=== PATIENT | female | born 1990 | race Caucasian/White ===

== ENCOUNTER 2016-07-22 16:02 | Emergency (ER) | payer BC, MEDICAID ==
[2016-07-22] MEDS ORDERED: NS 0.9% 1000 ML* 2,000 ML IV ONE (16:57)
[2016-07-22 17:17] LABS: Hematocrit 40 % (35-47); Hemoglobin 13.4 g/dl (12.0-16.0); Mean Corpuscular HGB Conc 34 g/dl (31-36); Mean Corpuscular Hemoglobin 27 pg (27-31); Mean Corpuscular Volume 80 fL (80-97); Mean Platelet Volume 9 um3 (7.4-10.4); Red Cell Distribution Width 15 % (10.5-15)
[2016-07-22 17:30] LABS: ALT 44 U/L (7-52); AST 43 U/L (13-39); Albumin 4.6 g/dL (3.2-5.2); Alkaline Phosphatase 81 U/L (34-104); Anion Gap 12 mmol/L (2-11); BUN/Creatinine Ratio 20.5 (8-20); Blood Urea Nitrogen 16 mg/dL (6-24); CO2 Carbon Dioxide 22 mmol/L (22-32); Calcium 9.7 mg/dL (8.6-10.3); Chloride 104 mmol/L (101-111); Creatine Kinase 108 U/L (10-223); EGFR African American 115.7 (>60); Globulin 3.6 g/dL (2-4); Glucose 85 mg/dL (70-100); Lipase 15 U/L (11.0-82.0); Potassium 3.5 mmol/L (3.5-5.0); Sodium 138 mmol/L (133-145); Total Protein 8.2 g/dL (6.4-8.9)
[2016-07-22] MEDS ORDERED: Iohexol 350* (CONTRAST) 500 ML MDV IV ONE (17:43)
[2016-07-22 17:51] LABS: TSH (Thyroid Stimulating Horm) 0.86 mcIU/mL (0.34-5.60)
--- NOTE | 2016-07-22 19:01 | RAD ---
Indication: Chest pain, shortness of breath. CTA of the chest was performed after IV contrast administration. Coronal and sagittal reconstructed images were obtained. Administered 57.7 ml of OMNIPAQUE 350 mgi/ml was given according to hospital protocol. Coronal and sagittal reconstructed images were obtained. The pulmonary arterial tree is well opacified. There are no filling defects present to suggest pulmonary embolus. There is no mediastinal or hilar adenopathy. The heart demonstrates no pericardial effusion. The inferior thyroid lobes are unremarkable. There is no mediastinal or hilar adenopathy noted. The heart demonstrates no pericardial effusion. The lung burnett demonstrate no evidence of alveolar consolidation. The trachea and major bronchi appear patent. No alveolar consolidation is noted. The visualized abdominal organs are unremarkable. IMPRESSION: No evidence of pulmonary embolus is noted.
[2016-07-22] MEDS ORDERED: NS 0.9% 1000 ML* 1,000 ML IV ONE (19:21)
[2016-07-22 19:48] LABS: Urine Bilirubin Negative (Negative); Urine Glucose Negative (Negative); Urine Nitrite Negative (Negative)
[2016-07-22 20:35] VITALS: BP 116/75
--- NOTE | 2016-07-22 20:39 | ED ---
Ruben Oneill Anna, scribed for Santhosh Otero MD on 07/22/16 at 1707 . Shortness of Breath - HPI Summary HPI Summary: Patient is a 25 y/o female coming to [facility] presenting with intermittent SOB that began this morning. The patient additionally reports feeling pressure in her chest, body aches, and feeling tired and weak with everyday activities like laundry. She is somewhat tired at baseline, but this is more severe than normal. Her body aches are most severe in her back, specifically her upper back. The symptoms have been worsening. Her appetite has been limited and she has eaten little over the last few days. When driving here, she became lightheaded and her fingers felt tingly. Denies fever, chills, cough, diarrhea, dysuria, pain in calves, hx of blood clots, or known allergies. Oxygen has alleviated SOB somewhat, but has not alleviated chest pressure. Pt is currently receiving Interferon for her chemotherapy treatment. She was previously on an IV every day. Last week she started doing shots at home instead. She has done four of these, which are scheduled for 3 days/week. When she started doing the shots, it made her feel crappy. Her doctor told her to do the shots before bed to sleep through the symptoms, and that has usually been okay. After she did her shot last night, she didnt sleep more than 3 hours. LNMP last week. She used to be on control but is not anymore. Her cramps are bad and flow is heavy since going off the control. - History of Current Complaint Chief Complaint: EDShortnessOfBreath Time Seen by Provider: 07/22/16 16:46 Hx Obtained From: Patient, Family/Buyer Agent - Accompanied by parents - Allergy/Home Medications Allergies/Adverse Reactions: Allergies Allergy/AdvReac Type Severity Reaction Status Date / Time No Known Allergies Allergy Verified 07/22/16 16:18 PMH/Surg Hx/FS Hx/Imm Hx Previously Healthy: No Endocrine/Hematology History: Denies: Hx Diabetes, Hx Thyroid Disease Cardiovascular History: Denies: Hx Hypertension, Hx Pacemaker/ICD Respiratory History: Denies: Hx Asthma, Hx Chronic Obstructive Pulmonary Disease (COPD) GI History: Denies: Hx Ulcer History: Denies: Hx Dialysis, Hx Renal Disease Sensory History: Reports: Hx Contacts or Glasses - BOTH Denies: Hx Hearing Aid Opthamlomology History: Reports: Hx Contacts or Glasses - BOTH Neurological History: Reports: Hx Headaches Psychiatric History: Reports: Hx Anxiety, Hx Depression Denies: Hx Panic Disorder - Cancer History Cancer Type, Location and Year: MELANOMA - NEW DIAGNOSIS Hx Chemotherapy: Yes - Surgical History Surgery Procedure, Year, and Place: Rt THIGH - MOLE REMOVED - MELANOMA +, WIDE EXCISION WITH LYMPH NODE REMOVED FROM GROIN Infectious Disease History: No Infectious Disease History: Denies: Hx Hepatitis, Hx Human Immunodeficiency Virus (HIV), Traveled Outside the [place] in Last 30 Days - Family History Known Family History: Positive: Hypertension - Father, Diabetes - Grandfather - Social History Lives: Alone Alcohol Use: Occasionally Substance Use Type: Reports: None Smoking Status (MU): Never Smoked Tobacco Review of Systems Positive: Other - Limited appetite, Positive: Chest Pain Positive: Shortness Of Breath Positive: Myalgia Neurological: Other - lightheaded Positive: Paresthesia All Other Systems Reviewed And Are Negative: Yes Physical Exam - Summary Physical Exam Summary: Mildly SOB in appearance Triage Information Reviewed: Yes Vital Signs On Initial Exam: Initial Vitals Temp Pulse Resp BP Pulse Ox 98.9 F 97 20 106/80 100 07/22/16 16:18 07/22/16 16:18 07/22/16 16:18 07/22/16 16:18 07/22/16 16:18 Vital Signs Reviewed: Yes Skin: Positive: Warm, Skin Color Reflects Adequate Perfusion, Dry Head/Face: Positive: Normal Head/Face Inspection Eyes: Positive: EOMI, CAMRYN ENT: Positive: Normal ENT inspection Neck: Positive: Supple, Nontender Cardiovascular: Positive: RRR Abdomen Description: Positive: Nontender, Soft Bowel Sounds: Positive: Present Musculoskeletal: Positive: Normal, Strength/ROM Intact Neurological: Positive: Normal, Sensory/Motor Intact, Alert, Oriented to Person Place, Time Psychiatric: Positive: Affect/Mood Appropriate Diagnostics - Vital Signs Vital Signs Temp Pulse Resp BP Pulse Ox 07/22/16 16:18 98.9 F 97 20 106/80 100 - Laboratory Lab Results: Lab Results 07/22/16 07/22/16 07/22/16 Range/Units 16:15 16:15 16:15 WBC 4.0 (3.5-10.8) 10^3/ul RBC 5.00 (4.0-5.4) 10^6/ul Hgb 13.4 (12.0-16.0) g/dl Hct 40 (35-47) % MCV 80 (80-97) fL MCH 27 (27-31) pg MCHC 34 (31-36) g/dl RDW 15 (10.5-15) % Plt Count 171 (150-450) 10^3/ul MPV 9 (7.4-10.4) um3 Neut % (Auto) 61.3 (38-83) % Lymph % (Auto) 19.6 L (25-47) % Piatt % (Auto) 18.4 H (1-9) % Eos % (Auto) 0 (0-6) % Baso % (Auto) 0.7 (0-2) % Absolute Neuts (auto) 2.5 (1.5-7.7) 10^3/ul Absolute Lymphs (auto) 0.8 L (1.0-4.8) 10^3/ul Absolute Monos (auto) 0.7 (0-0.8) 10^3/ul Absolute Eos (auto) 0 (0-0.6) 10^3/ul Absolute Basos (auto) 0 (0-0.2) 10^3/ul Absolute Nucleated RBC 0.03 10^3/ul Nucleated RBC % 0.8 INR (Anticoag Therapy) 0.90 (0.89-1.11) APTT 27.6 (26.0-36.3) seconds Sodium 138 (133-145) mmol/L Potassium 3.5 (3.5-5.0) mmol/L Chloride 104 (101-111) mmol/L Carbon Dioxide 22 (22-32) mmol/L Anion Gap 12 H (2-11) mmol/L BUN 16 (6-24) mg/dL Creatinine 0.78 (0.51-0.95) mg/dL Est GFR ( Amer) 115.7 (>60) Est GFR (Non-Af Amer) 90.0 (>60) BUN/Creatinine Ratio 20.5 H (8-20) Glucose 85 (70-100) mg/dL Lactic Acid (0.5-2.0) mmol/L Calcium 9.7 (8.6-10.3) mg/dL Total Bilirubin 0.40 (0.2-1.0) mg/dL AST 43 H (13-39) U/L ALT 44 (7-52) U/L Alkaline Phosphatase 81 (34-104) U/L Total Creatine Kinase 108 (10-223) U/L CK-MB (CK-2) 1.5 (0.6-6.3) ng/mL Troponin I 0.00 (<0.04) ng/mL C-Reactive Protein 2.60 (< 5.00) mg/L Total Protein 8.2 (6.4-8.9) g/dL Albumin 4.6 (3.2-5.2) g/dL Globulin 3.6 (2-4) g/dL Albumin/Globulin Ratio 1.3 (1-3) Lipase 15 (11.0-82.0) U/L TSH 0.86 (0.34-5.60) mcIU/mL Beta HCG, Quant < 0.60 mIU/mL Urine Color Urine Appearance Urine pH (5-9) Ur Specific Washburn (1.010-1.030) Urine Protein (Negative) Urine Ketones (Negative) Urine Blood (Negative) Urine Nitrate (Negative) Urine Bilirubin (Negative) Urine Urobilinogen (Negative) Ur Leukocyte Esterase (Negative) Urine Glucose (Negative) 07/22/16 07/22/16 Range/Units 16:15 19:34 WBC (3.5-10.8) 10^3/ul RBC (4.0-5.4) 10^6/ul Hgb (12.0-16.0) g/dl Hct (35-47) % MCV (80-97) fL MCH (27-31) pg MCHC (31-36) g/dl RDW (10.5-15) % Plt Count (150-450) 10^3/ul MPV (7.4-10.4) um3 Neut % (Auto) (38-83) % Lymph % (Auto) (25-47) % Piatt % (Auto) (1-9) % Eos % (Auto) (0-6) % Baso % (Auto) (0-2) % Absolute Neuts (auto) (1.5-7.7) 10^3/ul Absolute Lymphs (auto) (1.0-4.8) 10^3/ul Absolute Monos (auto) (0-0.8) 10^3/ul Absolute Eos (auto) (0-0.6) 10^3/ul Absolute Basos (auto) (0-0.2) 10^3/ul Absolute Nucleated RBC 10^3/ul Nucleated RBC % INR (Anticoag Therapy) (0.89-1.11) APTT (26.0-36.3) seconds Sodium (133-145) mmol/L Potassium (3.5-5.0) mmol/L Chloride (101-111) mmol/L Carbon Dioxide (22-32) mmol/L Anion Gap (2-11) mmol/L BUN (6-24) mg/dL Creatinine (0.51-0.95) mg/dL Est GFR ( Amer) (>60) Est GFR (Non-Af Amer) (>60) BUN/Creatinine Ratio (8-20) Glucose (70-100) mg/dL Lactic Acid 2.5 H* (0.5-2.0) mmol/L Calcium (8.6-10.3) mg/dL Total Bilirubin (0.2-1.0) mg/dL AST (13-39) U/L ALT (7-52) U/L Alkaline Phosphatase (34-104) U/L Total Creatine Kinase (10-223) U/L CK-MB (CK-2) (0.6-6.3) ng/mL Troponin I (<0.04) ng/mL C-Reactive Protein (< 5.00) mg/L Total Protein (6.4-8.9) g/dL Albumin (3.2-5.2) g/dL Globulin (2-4) g/dL Albumin/Globulin Ratio (1-3) Lipase (11.0-82.0) U/L TSH (0.34-5.60) mcIU/mL Beta HCG, Quant mIU/mL Urine Color Yellow Urine Appearance Clear Urine pH 7.0 (5-9) Ur Specific Washburn > 1.060 H (1.010-1.030) Urine Protein Negative (Negative) Urine Ketones 2+ H (Negative) Urine Blood Negative (Negative) Urine Nitrate Negative (Negative) Urine Bilirubin Negative (Negative) Urine Urobilinogen Negative (Negative) Ur Leukocyte Esterase Negative (Negative) Urine Glucose Negative (Negative) Result Diagrams: 07/22/16 16:15 07/22/16 16:15 Lab Statement: Any lab studies that have been ordered have been reviewed, and results considered in the medical decision making process. - CT Chest CTA CT Interpretation: No Acute Changes CT Interpretation Completed By: Radiologist - No evidence of pulmonary embolus is noted. - EKG 16:08 Cardiac Rate: NL - 97 bpm EKG Rhythm: Sinus Rhythm ST Segment: Normal Ectopy: None Re-Evaluation - Re-Evaluation First Eval Re-Evaluation Time: 19:56 Change: Improved Comment: Pt reports that she is feeling somewhat better. She was able to walk to the bathroom. Second Eval Re-Evaluation Time: 20:37 Change: Improved - Discussed reuslts and plan of care with patient. Patient agrees with plan. Course/Dx - Course Assessment/Plan: DISCUSSED RESULTS WITH PATIENT/MOTHER. DISCUSSED WITH DR GRIFFITHS. DISCHARGE HOME STABLE. - Diagnoses Provider Diagnoses: Dyspnea, Weakness - Physician Notifications Discussed Care of Patient With: Dr. Byers (oncologist) at 20:03. She recommended a CTA, which was negative. If the patient feels fine to go home, she is able to be discharged. The patient should consult with her doctor before she takes another treatment shot. Discharge - Discharge Plan Condition: Stable Disposition: HOME Patient Education Materials: Dyspnea (ED), Fatigue (ED) Referrals: Juan Ventura MD [Medical Doctor] - Additional Instructions: FOLLOW UP WITH YOUR DOCTOR. RETURN TO THE EMERGENCY DEPARTMENT FOR ANY WORSENING OF YOUR CONDITION OR QUESTIONS OR CONCERNS. The documentation as recorded by the Ruben leon Anna accurately reflects the service I personally performed and the decisions made by me, Santhosh Otero MD.
== END 2016-07-22 20:53 | disposition home or self-care (01) ==
LOC: ED 16:02
DX: R06.02 Shortness of breath (principal); R07.9 Chest pain, unspecified; R20.9 Unspecified disturbances of skin sensation; R06.00 Dyspnea, unspecified; R53.1 Weakness
CPT/HCPCS: 36415; 71275; 80053; 81003; 82550; 82553; 83605; 83690; 84443; 84484; 84702; 85025; 85610; 85730; 86140; 93005; 96360; 99283; Q9967

== ENCOUNTER 2016-12-09 15:52 | Emergency (ER) | payer BC, MEDICAID ==
[2016-12-09 17:34] VITALS: BP 116/77
[2016-12-09] MEDS ORDERED: Ibuprofen TAB* 600 MG PO ONE (17:37)
--- NOTE | 2016-12-09 18:49 | UC ---
Dental HPI - HPI Summary HPI Summary: 25 female presents with complaints of tooth pain on the right side of her lower jaw and radiates into cheek and ear that began last night 12/08/16. Patient states the tooth filling she had in her molar tooth fell out 2-3 days ago and worsened last night. Denies known swelling, redness, difficulty swallowing, difficulty breathing and any other complaints at this time. Tried taking ibuprofen this morning around 6:30am (1200mg) and it only gave her some relief. Has not tried anything else. She was up all night due to pain. - History of Current Complaint Chief Complaint: UCDentalProblem Stated Complaint: DENTAL/EAR/JAW PAIN Time Seen by Provider: 12/09/16 18:28 Hx Obtained From: Patient Hx Last Menstrual Period: 11/23/16 ?: No Onset/Duration: Sudden Onset, Lasting Days Pain Intensity: 9 Pain Scale Used: 0-10 Numeric Alleviating: OTC Meds - minimal - Allergies/Home Medications Allergies/Adverse Reactions: Allergies Allergy/AdvReac Type Severity Reaction Status Date / Time No Known Allergies Allergy Verified 12/09/16 17:24 Home Medications: Home Medications Ibuprofen [Advil] 600 mg PO Q6H PRN 12/09/16 [History Confirmed 12/09/16] Interferon Hood-2B [Intron A] 12/09/16 [History] PMH/Surg Hx/FS Hx/Imm Hx - Additional Past Medical History Additional PMH: denies asthma, htn and diabetes Cancer History: Other - melanoma Other Cancer History: melanoma - Surgical History Surgical History: Yes Surgery Procedure, Year, and Place: Rt THIGH - MOLE REMOVED - MELANOMA +, WIDE EXCISION WITH LYMPH NODE REMOVED FROM GROIN,left shoulder melanoma also. PT HAS DERMALS IN LOWER BACK AND WE HAVE SCANNED BRAIN BEFORE OK'D BY DR ULLOA- THIS IS CSP AND WAS CLEARED BY DR SWANN TO DO - Family History Known Family History: Positive: Hypertension - Father, Diabetes - Grandfather - Social History Alcohol Use: Rare Substance Use Type: None Smoking Status (MU): Never Smoked Tobacco - Immunization History Vaccination Up to Date: Yes Review of Systems Constitutional: Negative Skin: Negative ENT: Dental Pain, Ear Ache Respiratory: Negative Cardiovascular: Negative Gastrointestinal: Negative Motor: Negative Musculoskeletal: Negative Neurological: Headache All Other Systems Reviewed And Are Negative: Yes Physical Exam Triage Information Reviewed: Yes Appearance: Well-Appearing, No Pain Distress, Well-Nourished Vital Signs: Initial Vital Signs Temp 98.6 F 12/09/16 17:31 Pulse 79 12/09/16 17:31 Resp 16 12/09/16 17:31 BP 116/77 12/09/16 17:31 Pulse Ox 100 12/09/16 17:31 Vital Signs Reviewed: Yes Eyes: Positive: Conjunctiva Clear ENT: Positive: Normal ENT inspection, Hearing grossly normal, Pharynx normal, TMs normal. Negative: Pharyngeal erythema, Nasal congestion, Nasal drainage, Tonsillar swelling, Tonsillar exudate, Muffled/hoarse voice Dental: Positive: Gross Decay/Caries @, Dental Fracture @ - filling out of right back molar, Other: - tender on palpation of right cheek and radiating to right ear. no sign of abscess at this time. no erythema or discharge noted. no edema. Negative: Percussion Tenderness @, Abscess @, Cervical Lymphadenopathy, Bleeding Neck: Positive: Supple, Nontender, No Lymphadenopathy Respiratory: Positive: Chest non-tender, Lungs clear, Normal breath sounds, No respiratory distress, No accessory muscle use Cardiovascular: Positive: RRR, No Murmur, Pulses Normal, Brisk Capillary Refill Bowel Sounds: Positive: Present Musculoskeletal: Positive: Strength Intact, ROM Intact Neurological Exam: Normal Neurological: Positive: Alert Psychological Exam: Normal Skin Exam: Normal Dental Complaint Course/Dx - Course Course Of Treatment: given ibuprofen by Dr Galan while in office. due to HPI and PE findings will treat for dental pain and dental infection, prophylactically. Due to symptoms changing a few days after filling fell out, may be start of infection/abscess. Naproxen during day and given some pain management for nightime only to help with pain. Given antibiotics for infection and prophylaxis. Aware of worsening signs and symptoms. Follow up with dentist/ pcp. Swish with salt water, oragel. - Differential Dx/Diagnosis Differential Diagnosis/Dx: Dental Abscess, Dental Caries, Fractured Tooth, Other Provider Diagnoses: dental infection, dental pain Discharge - Discharge Plan Condition: Stable Disposition: HOME Prescriptions: Amoxicillin CAP* [Amoxicillin 500 MG CAP*] 500 mg PO Q12H #14 cap HYDROcodone/ACETAMIN 5-325 MG* [Pacolet 5-325 TAB*] 1 tab PO Q6H PRN #5 tab MDD 2 PRN Reason: Pain Patient Education Materials: Toothache (ED) Referrals: Juan Ventura MD [Primary Care Provider] - Additional Instructions: Take prescribed antibiotic to prevent dental infection/treat dental infection until entire dose is finished. Take prescribed pain medication at bedtime to help with pain. Do not drive while taking this medication. Take naproxen in the morning for pain and inflammation. Swishing with salt water, and using oragel will also help with pain and infection. Be sure to go to dentist appointment on Wednesday or sooner to fix problem. If pain increases, worsens or new symptoms develop please return or seek medical attention. Follow up with dentist.
== END 2016-12-09 19:15 | disposition home or self-care (01) ==
LOC: UCEAST 15:52
DX: K04.7 Periapical abscess without sinus (principal); K08.89 Other specified disorders of teeth and supporting structures
CPT/HCPCS: 99212; A9270-GY; G0463

== ENCOUNTER 2017-06-09 12:57 | Emergency (ER) | payer MEDICAID ==
[2017-06-09 13:13] VITALS: BP 111/66
--- NOTE | 2017-06-09 13:35 | UC ---
Complaint Female HPI - HPI Summary HPI Summary: Pt presents with gross hematuria. She tells me that she has been feeling fine and without symptoms, but starting this morning she has bladder pressure with gross hematuria. It is sharp and burning when she urinates. She tells me that she has a history of melanoma, May 2016, to her right lateral thigh which was "into the lymph nodes" near her right groin. She was undergoing interferon therapy daily and then weekly up until March of 2017 - when she was lost to follow up. She says that she has had some issues with her insurance and that the doctor's office has not called her for follow up. Previously she was seeing them every 2 weeks for labwork and/or treatment. Currently she denies fever, chills, headache, dizziness, SOB, chest pain, recent illness, abdominal pain, N/V/D/C, flank pain, vaginal discharge/bleeding/ odor, new diet or exercise regimen. 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 - History Of Current Complaint Hx Obtained From: Patient Hx Last Menstrual Period: unsure on depo Onset/Duration: Sudden Onset Timing: Constant Severity Initially: Moderate Severity Currently: Moderate Pain Intensity: 3 Pain Scale Used: 0-10 Numeric Character: Burning, Cramping Aggravating Factor(s): Urination Alleviating Factor(s): Nothing <Juan Muñiz - Last Filed: 06/09/17 15:21> <Fabi Ruiz - Last Filed: 06/10/17 14:30> - History Of Current Complaint Chief Complaint: UCGU Stated Complaint: POSS UTI Time Seen by Provider: 06/09/17 13:33 - Allergies/Home Medications Allergies/Adverse Reactions: Allergies Allergy/AdvReac Type Severity Reaction Status Date / Time No Known Allergies Allergy Verified 02/24/17 10:27 PMH/Surg Hx/FS Hx/Imm Hx Previously Healthy: Yes Cancer History: Other Other Cancer History: Melanoma right thigh - Surgical History Surgical History: Yes Surgery Procedure, Year, and Place: Rt THIGH - MOLE REMOVED - MELANOMA +, WIDE EXCISION WITH LYMPH NODE REMOVED FROM GROIN,left shoulder melanoma. R ear, R arm mole removal - Family History Known Family History: Positive: Hypertension - Father, Diabetes - Grandfather - Social History Occupation: Employed Full-time Lives: With Family Alcohol Use: Rare Substance Use Type: None Smoking Status (MU): Never Smoked Tobacco - Immunization History Vaccination Up to Date: Yes <Juan Muñiz - Last Filed: 06/09/17 15:21> Review of Systems Constitutional: Negative Skin: Negative Eyes: Negative ENT: Negative Respiratory: Negative Cardiovascular: Negative Gastrointestinal: Abdominal Pain - Suprapubic Genitourinary: Dysuria, Hematuria Neurovascular: Negative Musculoskeletal: Negative Neurological: Negative Psychological: Negative All Other Systems Reviewed And Are Negative: Yes <Juan Muñiz - Last Filed: 06/09/17 15:21> Physical Exam Triage Information Reviewed: Yes Appearance: Well-Appearing, Well-Nourished Vital Signs: Initial Vital Signs Temp 98.2 F 06/09/17 13:04 Pulse 88 06/09/17 13:04 Resp 18 06/09/17 13:04 BP 111/66 06/09/17 13:04 Pulse Ox 100 06/09/17 13:04 Vital Signs Reviewed: Yes Eyes: Positive: Conjunctiva Clear. Negative: Conjunctiva Inflamed, Discharge ENT: Positive: Hearing grossly normal, Pharynx normal, TMs normal, Uvula midline. Negative: Pharyngeal erythema, Nasal congestion, Nasal drainage, TM bulging, TM dull, TM red, Tonsillar swelling, Tonsillar exudate, Sinus tenderness Neck: Positive: Supple, Nontender, No Lymphadenopathy Respiratory: Positive: Chest non-tender, Lungs clear, Normal breath sounds, No respiratory distress, No accessory muscle use Cardiovascular: Positive: RRR, No Murmur, Pulses Normal Abdomen Description: Positive: Nontender, No Organomegaly, Soft, Other:. Negative: CVA Tenderness (R), CVA Tenderness (L), Distended, Guarding Bowel Sounds: Positive: Present Neurological: Positive: Alert. Negative: Fatigued, Lethargic Psychological: Positive: Age Appropriate Behavior Skin: Negative: rashes <Juan Muñiz - Last Filed: 06/09/17 15:21> Vital Signs: Initial Vital Signs Temp 98.2 F 06/09/17 13:04 Pulse 88 06/09/17 13:04 Resp 18 06/09/17 13:04 BP 111/66 06/09/17 13:04 Pulse Ox 100 06/09/17 13:04 <Fabi Ruiz - Last Filed: 06/10/17 14:30> Complaint Female Dx - Course Course Of Treatment: UA revealed 3+ Protein. 1+ Ketones. 3+ blood. 2+ Bili. 2.0 urobili. 1+ Leuks. Specimen with jacques hematuria. Given pt's melanoma history with lymph node involvement, recent loss to follow up, and abrupt onset of new symptoms - advised to go to the ED for further evaluation. She was agreeable to this and will go by private vehicle. - Differential Dx/Diagnosis Differential Diagnosis/HQI/PQRI: Ureteral Stone, Urinary Tract Infection Provider Diagnoses: Gross Hematuria. Melanoma right thigh. Proteinuria. Bilirubinuria <Juan Muñiz - Last Filed: 06/09/17 15:21> Discharge - Discharge Plan Discharge Disposition Comment: To [facility] by private vehicle <Juan Muñiz - Last Filed: 06/09/17 15:21> <Fabi Ruiz - Last Filed: 06/10/17 14:30> - Discharge Plan Condition: Stable Disposition: OTHER Referrals: Juan Ventura MD [Primary Care Provider] - Additional Instructions: Provider that evaluated you today recommended that you go to the ED for further evaluation regarding your abnormal urine results. If you develop any changes or increased/worsening symptoms on the way - please call 911. Attestation Statement User Type: Provider - Discussed pt with WILLOW. Recommend pt to ED for further evaluation with LFTs, creatinine kinase for ?rhabdo, metatstic dx <Fabi Ruiz - Last Filed: 06/10/17 14:30>
== END 2017-06-09 14:06 ==
LOC: UCEAST 12:57
DX: R82.2 Biliuria (principal); R31.0 Gross hematuria; C43.9 Malignant melanoma of skin, unspecified; R80.9 Proteinuria, unspecified
CPT/HCPCS: 81003; 87086; 99212; G0463

== ENCOUNTER 2017-06-09 14:27 | Emergency (ER) | payer MEDICAID ==
[2017-06-09 14:40] VITALS: BP 112/72
[2017-06-09 17:02] LABS: Urine Bacteria Absent (Absent); Urine Bilirubin Negative (Negative); Urine Glucose Negative (Negative); Urine Nitrite Negative (Negative)
[2017-06-09] MEDS ORDERED: Phenazopyridine TAB* 100 MG PO ONE (17:52)
--- NOTE | 2017-06-09 17:59 | ED ---
GI/ HPI - HPI Summary HPI Summary: Patient arrives from . She is told to come here d/t her jacques blood in the urine. She notes to pain in the suprapubic region, but denies back apin. Denies fevers, sweats or chills. Recently DC'd interferon for her melanoma 2 months ago and possible with elevated LFT's. She is concerned about this. + urinary, frequency, burning upon urination. Dark colored, cloudy urine and bright red urine. Denies flank pain. Denies diaphoresis and chills. Denies known fever. No abnormal vaginal discharge reported. Denies recent illness. Pt presents with gross hematuria. She tells me that she has been feeling fine and without symptoms, but starting this morning she has bladder pressure with gross hematuria. It is sharp and burning when she urinates. She tells me that she has a history of melanoma, May 2016, to her right lateral thigh which was "into the lymph nodes" near her right groin. She was undergoing interferon therapy daily and then weekly up until March of 2017 - when she was lost to follow up. She says that she has had some issues with her insurance and that the doctor's office has not called her for follow up. Previously she was seeing them every 2 weeks for lab work and/or treatment. Currently she denies fever, chills, headache, dizziness, SOB, chest pain, recent illness, abdominal pain, N/V/D/C, flank pain, vaginal discharge/bleeding/ odor, new diet or exercise regimen. 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 - History of Current Complaint Chief Complaint: EDUrogenitalProblems Time Seen by Provider: 06/09/17 16:16 Stated Complaint: BLOOD IN URINE SENT FROM Hx Obtained From: Patient Hx Last Menstrual Period: unsure on depo Onset/Duration: Started Hours Ago Timing: Constant Severity: Moderate Current Severity: Moderate Vaginal Bleeding Description: Bright Red Pain Intensity: 6 Location of Pain: Suprapubic Pain Characteristics: Cramping Associated Signs and Symptoms: Positive: UTI Symptoms Aggravating Factor(s): Nothing Alleviating Factor(s): Nothing - Allergy/Home Medications Allergies/Adverse Reactions: Allergies Allergy/AdvReac Type Severity Reaction Status Date / Time No Known Allergies Allergy Verified 02/24/17 10:27 PMH/Surg Hx/FS Hx/Imm Hx Previously Healthy: Yes Endocrine/Hematology History: Denies: Hx Diabetes, Hx Thyroid Disease Cardiovascular History: Denies: Hx Hypertension, Hx Pacemaker/ICD Respiratory History: Denies: Hx Asthma, Hx Chronic Obstructive Pulmonary Disease (COPD) GI History: Denies: Hx Ulcer History: Denies: Hx Dialysis, Hx Renal Disease Sensory History: Reports: Hx Contacts or Glasses - BOTH Denies: Hx Hearing Aid Opthamlomology History: Reports: Hx Contacts or Glasses - BOTH Neurological History: Reports: Hx Headaches Psychiatric History: Reports: Hx Anxiety, Hx Depression Denies: Hx Panic Disorder - Cancer History Cancer Type, Location and Year: MELANOMA - dx 03/2016; not currently using interferon Hx Chemotherapy: Yes - Surgical History Surgery Procedure, Year, and Place: Rt THIGH - MOLE REMOVED - MELANOMA +, WIDE EXCISION WITH LYMPH NODE REMOVED FROM GROIN,left shoulder melanoma. R ear, R arm mole removal - Immunization History Hx Pertussis Vaccination: No Immunizations Up to Date: Unable to Obtain/Confirm Infectious Disease History: No Infectious Disease History: Denies: Hx Hepatitis, Hx Human Immunodeficiency Virus (HIV), Traveled Outside the [place] in Last 30 Days - Family History Known Family History: Positive: Hypertension - Father, Diabetes - Grandfather - Social History Occupation: Employed Full-time Lives: With Family Alcohol Use: Rare Hx Substance Use: No Substance Use Type: Reports: None Hx Tobacco Use: No Smoking Status (MU): Never Smoked Tobacco Review of Systems Constitutional: Negative Negative: Fever, Chills, Fatigue, Skin Diaphoresis Eyes: Negative Cardiovascular: Negative Respiratory: Negative Positive: see HPI, dysuria, hematuria, pain, urgency Musculoskeletal: Negative Skin: Negative Neurological: Negative All Other Systems Reviewed And Are Negative: Yes Physical Exam Triage Information Reviewed: Yes Vital Signs On Initial Exam: Initial Vitals Temp Pulse Resp BP Pulse Ox 97.6 F 106 20 112/72 100 06/09/17 14:37 06/09/17 14:37 06/09/17 14:37 06/09/17 14:37 06/09/17 14:37 Vital Signs Reviewed: Yes Appearance: Positive: Well-Appearing, Well-Nourished, Pain Distress Skin: Positive: Warm, Skin Color Reflects Adequate Perfusion Head/Face: Positive: Normal Head/Face Inspection Eyes: Positive: EOMI, CAMRYN, Conjunctiva Clear Neck: Positive: Supple, Nontender, No Lymphadenopathy Respiratory/Lung Sounds: Positive: Clear to Auscultation, Breath Sounds Present Cardiovascular: Positive: Normal, RRR, Pulses are Symmetrical in both Upper and Lower Extremities Musculoskeletal: Positive: Normal, Strength/ROM Intact Neurological: Positive: Speech Normal Psychiatric: Positive: Normal, Affect/Mood Appropriate AVPU Assessment: Alert - Mahi Coma Scale Best Eye Response: 4 - Spontaneous Best Motor Response: 6 - Obeys Commands Best Verbal Response: 5 - Oriented Coma Scale Total: 15 Diagnostics - Vital Signs Vital Signs Temp Pulse Resp BP Pulse Ox 06/09/17 14:37 97.6 F 106 20 112/72 100 - Laboratory Lab Results: Lab Results 06/09/17 Range/Units 16:14 Urine Color Yellow Urine Appearance Cloudy Urine pH 7.0 (5-9) Ur Specific [place] 1.021 (1.010-1.030) Urine Protein 2+(100 mg/dl) H (Negative) Urine Ketones 2+ H (Negative) Urine Blood 3+ H (Negative) Urine Nitrate Negative (Negative) Urine Bilirubin Negative (Negative) Urine Urobilinogen Negative (Negative) Ur Leukocyte Esterase 3+ H (Negative) Urine WBC (Auto) 3+(>20/hpf) H (Absent) Urine RBC (Auto) 3+(>10/hpf) H (Absent) Ur Squamous Epith Cells Present H (Absent) Ur Transition Epith Cell Present H (Absent) Urine Bacteria Absent (Absent) Urine Glucose Negative (Negative) Result Diagrams: 06/09/17 18:12 06/09/17 18:12 Lab Statement: Any lab studies that have been ordered have been reviewed, and results considered in the medical decision making process. GIGU Course/Dx - Course Course Of Treatment: UA performed. WBC and leuks seen. Labs WNL. Patient experiencing urgency, frequency and pain on urination. Dark urine noted with RBC's. No abnormal vaginal discharge or bleeding. No CVA tenderness bilaterally. No previous UTI within last 6 months and no recent Augmentin use. Will treat for uncomplicated UTI and await sensitivities of urine culture. Will call if abx not sensitive to medication. Pyridium given for comfort. Return precautions and follow up with PCP. - Diagnoses Differential Diagnoses - Female: Pyelonephritis Provider Diagnoses: UTI (urinary tract infection) Discharge - Discharge Plan Condition: Stable Disposition: HOME Prescriptions: Phenazopyridine TAB* [Pyridium 100 mg TAB*] 100 mg PO TID PRN #12 tab MDD 3 PRN Reason: Pain Sulfamethox/Trimethoprim DS* [Bactrim DS 800/160 TAB*] 1 tab PO BID #10 tab MDD 2 Patient Education Materials: Urinary Tract Infection in Women (ED) Referrals: Juan Ventura MD [Primary Care Provider] - Additional Instructions: Dx. Urinary Tract Infection Drink plenty of fluids. Supplement with cranberry or ng juice. You may also take an over the counter cranberry supplement. If you have any questions about this, you may ask your pharmacist. If your symptoms have not improved in 1-2 days, if you develop fever, sweats or chills, please go to your emergency room, or call your PCP. Antibiotics were prescribed to you. Please take as directed. Supplement with over the counter probiotics on the opposite schedule of your antibiotic to prevent secondary infections. Do not take together as they may counteract each other. Pyridium: This medication is used to treat pain, burning, increased urination, and increased urge to urinate. These symptoms are usually caused by infection, injury, surgery, catheter, or other conditions that irritate the lower urinary tract. Pyridium will treat the symptoms of a urinary tract infection, but this medication does not treat the actual infection. Take the antibiotic that your doctor prescribes to treat your infection. Pyridium will most likely darken the color of your urine to an orange or red color. This is a normal effect and is not cause for alarm unless you have other symptoms such as pale or yellowed skin, fever, stomach pain, nausea, and vomiting. Darkened urine may also cause stains to your underwear, which may or may not be removed by laundering. It can also permanently stain soft contact lenses, and you should not wear them while taking this medicine.
[2017-06-09 18:26] LABS: Hematocrit 39 % (35-47); Hemoglobin 13.2 g/dl (12.0-16.0); Mean Corpuscular HGB Conc 34 g/dl (31-36); Mean Corpuscular Hemoglobin 30 pg (27-31); Mean Corpuscular Volume 88 fL (80-97); Mean Platelet Volume 8 um3 (7.4-10.4); Red Blood Count 4.45 10^6/ul (4.0-5.4); Red Cell Distribution Width 15 % (10.5-15)
[2017-06-09 18:40] LABS: Albumin 4.5 g/dL (3.2-5.2); BUN/Creatinine Ratio 11.3 (8-20); Calcium 9.4 mg/dL (8.6-10.3); EGFR African American 111.5 (>60); EGFR Non-African American 86.7 (>60); Potassium 3.6 mmol/L (3.5-5.0); Total Bilirubin 0.9 mg/dL (0.2-1.0); Total Protein 7.5 g/dL (6.4-8.9)
== END 2017-06-09 18:59 | disposition home or self-care (01) ==
LOC: ED 14:27
DX: N39.0 Urinary tract infection, site not specified (principal); F32.9 Major depressive disorder, single episode, unspecified; F41.9 Anxiety disorder, unspecified; C43.9 Malignant melanoma of skin, unspecified
CPT/HCPCS: 36415; 80053; 81003; 81015; 85025; 99282; A9270-GY

== ENCOUNTER 2017-09-26 11:21 | Emergency (ER) | payer OTHER ==
[2017-09-26] MEDS ORDERED: NS 0.9% 1000 ML* 2,000 ML IV ONE (12:21)
[2017-09-26] MEDS ORDERED: Sodium Phosphate ADULT ENEMA* 118 ml bottle PR ONE (12:21)
[2017-09-26 12:37] LABS: ABS Basophils 0.1 10^3/ul (0-0.2); ABS Eosinophils 0.1 10^3/ul (0-0.6); ABS Lymphocytes 1.8 10^3/ul (1.0-4.8); ABS Monocytes 0.5 10^3/ul (0-0.8); ABS Neutrophils 5.2 10^3/ul (1.5-7.7); ABS Nucleated RBC 0 10^3/ul; Eosinophil % 1.1 % (0-6); Hematocrit 40 % (35-47); Hemoglobin 13.4 g/dl (12.0-16.0); Mean Corpuscular HGB Conc 34 g/dl (31-36); Mean Corpuscular Hemoglobin 31 pg (27-31); Mean Corpuscular Volume 91 fL (80-97); Mean Platelet Volume 8 um3 (7.4-10.4); Nucleated Red Blood Cells % 0; Platelet Count 219 10^3/ul (150-450); Red Blood Count 4.33 10^6/ul (4.0-5.4); Red Cell Distribution Width 14 % (10.5-15); White Blood Count 7.6 10^3/ul (3.5-10.8)
[2017-09-26 12:38] LABS: Urine Appearance Cloudy; Urine Blood Negative (Negative); Urine Color Yellow; Urine Ketones Negative (Negative); Urine Protein Negative (Negative); Urine Urobilinogen Negative (Negative)
[2017-09-26 13:02] LABS: EGFR Non-African American 78.7 (>60)
[2017-09-26] MEDS ORDERED: Iohexol 300* (CONTRAST) 10 ML SDV IV ONE (13:58)
--- NOTE | 2017-09-26 16:16 | RAD ---
CLINICAL HISTORY: Lower abdominal pain x2 months COMPARISON: CT abdomen pelvis dated January 25, 2012 TECHNIQUE: Contrast enhanced CT examination of the abdomen and pelvis from the lung bases through the initial tuberosities. The patient received 67 mL Omnipaque 300 intravenously prior to imaging.The patient received oral contrast as well prior to imaging. FINDINGS: VISUALIZED LUNG BASES: The visualized lung bases are grossly clear. There is no pleural effusion. ABDOMEN AND PELVIS: The liver, spleen, pancreas and adrenal glands are grossly normal in appearance. There is a small amount of pericholecystic fluid. There is no hyperattenuating material in the gallbladder lumen. There is no definite common bile duct widening within the limitations of CT evaluation. The kidneys are normal in appearance without focal mass, calcification or signs of hydronephrosis. Incidental note is made of a left retroaortic renal vein. The oral contrast has progressed as far as the descending colon. The small and large bowel are not distended. The normal-appearing appendix with gas and oral contrast in the lumen is identified in the right lower quadrant (axial image 64 and coronal image 40). There is no gross retroperitoneal or mesenteric lymphadenopathy. The pelvic viscera is normal in appearance. Surgical material overlying the right groin is presumably related to the reported history of lymph node resection. The abdominal aorta and iliac arteries are normal in course and diameter. There are no sinister bone lesions. IMPRESSION: The small amount of pericholecystic fluid could be seen in the setting of cholecystitis. If this correlates to the patient's clinical presentation superior characterization of the gallbladder can be made with right upper quadrant ultrasound.
[2017-09-26] MEDS ORDERED: Ketorolac INJ* 30 MG/ML 1 ML VIAL IV ONE (16:30)
--- NOTE | 2017-09-26 17:36 | RAD ---
HISTORY: To further characterize pericholecystic fluid seen on the same day CT of the abdomen and pelvis in a woman with lower abdominal pain COMPARISONS: Same day CT of the abdomen and pelvis that showed trace pericholecystic fluid, new since the previous CT examination TECHNIQUE: Multiple transverse and longitudinal ultrasound images were obtained of the right upper quadrant. FINDINGS: LIVER: The liver is normal in dimensions and echogenicity. Normal hepatic and portal venous blood flow is duplicated with color flow imaging. There is no gross intrahepatic biliary duct dilatation. GALLBLADDER AND EXTRAHEPATIC BILIARY DUCT: There is trace pericholecystic fluid. Otherwise the gallbladder is normal in appearance without intraluminal stones or other soft tissue masses. There is no gallbladder wall thickening. The common bile duct measures a maximum diameter of 3 mm. PANCREAS: The portions of the pancreas not obscured by bowel gas are normal in appearance. RIGHT KIDNEY: The right kidney is normal in size, morphology and echogenicity. AORTA AND IVC: The visualized portions are normal in appearance and not pathologically dilated. IMPRESSION: TRACE PERICHOLECYSTIC FLUID AND THIS OTHERWISE NORMAL RIGHT UPPER QUADRANT ULTRASOUND.
[2017-09-26 18:17] VITALS: BP 105/71
--- NOTE | 2017-09-26 19:54 | ED ---
Matty Oneill Elizabeth, scribed for Santhosh Otero MD on 09/26/17 at 1225 . Abdominal Pain/Female - HPI Summary HPI Summary: The patient is a 26 year old female complaining of stomach pain that has been ongoing for 2 months. The patient additionally complains of cramping and constipation. The patient denies dysuria, congestion, or sore throat. The patient notes that she has been taking laxatives and stool softeners to help with bowel movements but they have not provided relief recently. She says that standing aggravates the pain. She has been taking an antacid prescribed by her primary care physician. Patient takes the Depo-Provera control shot. - History of Current Complaint Chief Complaint: EDGeneral Stated Complaint: ABD PAIN Time Seen by Provider: 09/26/17 12:11 Hx Obtained From: Patient Hx Last Menstrual Period: unsure on depo Onset/Duration: Lasting Weeks - lasting 2 months Timing: Weeks Severity Currently: Mild Pain Intensity: 6 Pain Scale Used: 0-10 Numeric Radiates to: LLQ Character: Cramping Alleviating Factor(s): Position - lying down alleviates some pain Associated Signs and Symptoms: Positive: Constipation. Negative: Urinary Symptoms Allergies/Adverse Reactions: Allergies Allergy/AdvReac Type Severity Reaction Status Date / Time No Known Allergies Allergy Verified 09/26/17 11:30 Home Medications: Home Medications Omeprazole CAP* [Prilosec CAP* 20 MG] 20 mg PO DAILY 09/26/17 [History Confirmed 09/26/17] PMH/Surg Hx/FS Hx/Imm Hx Endocrine/Hematology History: Denies: Hx Diabetes, Hx Thyroid Disease Cardiovascular History: Denies: Hx Hypertension, Hx Pacemaker/ICD Respiratory History: Denies: Hx Asthma, Hx Chronic Obstructive Pulmonary Disease (COPD) GI History: Denies: Hx Ulcer History: Denies: Hx Dialysis, Hx Renal Disease Sensory History: Reports: Hx Contacts or Glasses - BOTH Denies: Hx Hearing Aid Opthamlomology History: Reports: Hx Contacts or Glasses - BOTH Neurological History: Reports: Hx Headaches Psychiatric History: Reports: Hx Anxiety, Hx Depression Denies: Hx Panic Disorder - Cancer History Cancer Type, Location and Year: MELANOMA - dx 03/2016; not currently using interferon Hx Chemotherapy: Yes - Surgical History Surgery Procedure, Year, and Place: Rt THIGH - MOLE REMOVED - MELANOMA +, WIDE EXCISION WITH LYMPH NODE REMOVED FROM GROIN,left shoulder melanoma. R ear, R arm mole removal Infectious Disease History: No Infectious Disease History: Denies: Hx Hepatitis, Hx Human Immunodeficiency Virus (HIV), Traveled Outside the [place] in Last 30 Days - Family History Known Family History: Positive: Hypertension - Father, Diabetes - Grandfather - Social History Alcohol Use: Rare Hx Substance Use: No Substance Use Type: Reports: None Hx Tobacco Use: No Smoking Status (MU): Never Smoked Tobacco Review of Systems Negative: Sore Throat, Nasal Discharge Positive: Abdominal Pain - stomach pain, Other - Constipation Negative: dysuria All Other Systems Reviewed And Are Negative: Yes Physical Exam - Summary Physical Exam Summary: General: well-appearing, mild pain distress Skin: warm, color reflects adequate perfusion, dry Head: normal Eyes: EOMI, CAMRYN ENT: normal Neck: supple, nontender Respiratory: CTA, breath sounds present Cardiovascular: RRR Abdomen: soft, mild tenderness in the LLQ Bowel: present Musculoskeletal: normal, strength/ROM intact Neurological: normal, sensory/motor intact, A&O x3 Psychological: affect/mood appropriate Triage Information Reviewed: Yes Vital Signs On Initial Exam: Initial Vitals Temp Pulse Resp BP Pulse Ox 99.4 F 88 18 117/73 100 09/26/17 11:24 09/26/17 11:24 09/26/17 11:24 09/26/17 11:24 09/26/17 11:24 Vital Signs Reviewed: Yes Diagnostics - Vital Signs Vital Signs Temp Pulse Resp BP Pulse Ox 09/26/17 11:24 99.4 F 88 18 117/73 100 - Laboratory Lab Results: Lab Results 09/26/17 09/26/17 09/26/17 Range/Units 12:25 12:25 12:25 WBC 7.6 (3.5-10.8) 10^3/ul RBC 4.33 (4.0-5.4) 10^6/ul Hgb 13.4 (12.0-16.0) g/dl Hct 40 (35-47) % MCV 91 (80-97) fL MCH 31 (27-31) pg MCHC 34 (31-36) g/dl RDW 14 (10.5-15) % Plt Count 219 (150-450) 10^3/ul MPV 8 (7.4-10.4) um3 Neut % (Auto) 68.0 (38-83) % Lymph % (Auto) 24.0 L (25-47) % [place] % (Auto) 6.2 (0-7) % Eos % (Auto) 1.1 (0-6) % Baso % (Auto) 0.7 (0-2) % Absolute Neuts (auto) 5.2 (1.5-7.7) 10^3/ul Absolute Lymphs (auto) 1.8 (1.0-4.8) 10^3/ul Absolute Monos (auto) 0.5 (0-0.8) 10^3/ul Absolute Eos (auto) 0.1 (0-0.6) 10^3/ul Absolute Basos (auto) 0.1 (0-0.2) 10^3/ul Absolute Nucleated RBC 0 10^3/ul Nucleated RBC % 0 Sodium 138 (133-145) mmol/L Potassium 4.0 (3.5-5.0) mmol/L Chloride 108 (101-111) mmol/L Carbon Dioxide 26 (22-32) mmol/L Anion Gap 4 (2-11) mmol/L BUN 9 (6-24) mg/dL Creatinine 0.87 (0.51-0.95) mg/dL Est GFR ( Amer) 101.2 (>60) Est GFR (Non-Af Amer) 78.7 (>60) BUN/Creatinine Ratio 10.3 (8-20) Glucose 89 (70-100) mg/dL Lactic Acid 0.8 (0.5-2.0) mmol/L Calcium 9.5 (8.6-10.3) mg/dL Total Bilirubin 0.40 (0.2-1.0) mg/dL AST 14 (13-39) U/L ALT 12 (7-52) U/L Alkaline Phosphatase 45 (34-104) U/L C-Reactive Protein < 1.00 (< 5.00) mg/L Total Protein 7.1 (6.4-8.9) g/dL Albumin 4.3 (3.2-5.2) g/dL Globulin 2.8 (2-4) g/dL Albumin/Globulin Ratio 1.5 (1-3) Beta HCG, Quant < 0.60 mIU/mL Urine Color Urine Appearance Urine pH (5-9) Ur Specific [place] (1.010-1.030) Urine Protein (Negative) Urine Ketones (Negative) Urine Blood (Negative) Urine Nitrate (Negative) Urine Bilirubin (Negative) Urine Urobilinogen (Negative) Ur Leukocyte Esterase (Negative) Urine Glucose (Negative) 09/26/17 Range/Units 12:25 WBC (3.5-10.8) 10^3/ul RBC (4.0-5.4) 10^6/ul Hgb (12.0-16.0) g/dl Hct (35-47) % MCV (80-97) fL MCH (27-31) pg MCHC (31-36) g/dl RDW (10.5-15) % Plt Count (150-450) 10^3/ul MPV (7.4-10.4) um3 Neut % (Auto) (38-83) % Lymph % (Auto) (25-47) % [place] % (Auto) (0-7) % Eos % (Auto) (0-6) % Baso % (Auto) (0-2) % Absolute Neuts (auto) (1.5-7.7) 10^3/ul Absolute Lymphs (auto) (1.0-4.8) 10^3/ul Absolute Monos (auto) (0-0.8) 10^3/ul Absolute Eos (auto) (0-0.6) 10^3/ul Absolute Basos (auto) (0-0.2) 10^3/ul Absolute Nucleated RBC 10^3/ul Nucleated RBC % Sodium (133-145) mmol/L Potassium (3.5-5.0) mmol/L Chloride (101-111) mmol/L Carbon Dioxide (22-32) mmol/L Anion Gap (2-11) mmol/L BUN (6-24) mg/dL Creatinine (0.51-0.95) mg/dL Est GFR ( Amer) (>60) Est GFR (Non-Af Amer) (>60) BUN/Creatinine Ratio (8-20) Glucose (70-100) mg/dL Lactic Acid (0.5-2.0) mmol/L Calcium (8.6-10.3) mg/dL Total Bilirubin (0.2-1.0) mg/dL AST (13-39) U/L ALT (7-52) U/L Alkaline Phosphatase (34-104) U/L C-Reactive Protein (< 5.00) mg/L Total Protein (6.4-8.9) g/dL Albumin (3.2-5.2) g/dL Globulin (2-4) g/dL Albumin/Globulin Ratio (1-3) Beta HCG, Quant mIU/mL Urine Color Yellow Urine Appearance Cloudy Urine pH 8.0 (5-9) Ur Specific [place] 1.020 (1.010-1.030) Urine Protein Negative (Negative) Urine Ketones Negative (Negative) Urine Blood Negative (Negative) Urine Nitrate Negative (Negative) Urine Bilirubin Negative (Negative) Urine Urobilinogen Negative (Negative) Ur Leukocyte Esterase Negative (Negative) Urine Glucose Negative (Negative) Result Diagrams: 09/26/17 12:25 09/26/17 12:25 Lab Statement: Any lab studies that have been ordered have been reviewed, and results considered in the medical decision making process. - CT CT Abd/Pelvis CT Interpretation: Positive (See Comments) - IMPRESSION: The small amount of pericholecystic fluid could be seen in the setting of cholecystitis. If this correlates to the patient's clinical presentation superior characterization of the gallbladder can be made with right upper quadrant ultrasound. Dr. Otero has reviewed this report. CT Interpretation Completed By: Radiologist - Additional Comments Diagnostic Additional Comments: Gallbladder Ultrasound Interpreted by radiologist. IMPRESSION: TRACE PERICHOLECYSTIC FLUID AND THIS OTHERWISE NORMAL RIGHT UPPER QUADRANT ULTRASOUND. Dr. Otero has reviewed this report. Abdominal Pain Fem Course/Dx - Course Course Of Treatment: DISCUSSED CT FINDINGS WITH RADIOLOGIST. THERE IS NOT EXCESSIVE STOOL IN THE RECTUM. THE SENSATION OF NEEDING TO HAVE A BM MAY BE DUE TO INFLAMMATION. RX BENTYL. RECOMMENDED STOP TAKING LAXATIVES. THE PATIENT HAS A HX OF MELANOMA, IT IS NOT RULED OUT A POSSIBLE CAUSE OF THE ABDOMINAL DISCOMFORT. THIS WAS ALL DISCUSSED WITH THE PATIENT. SHE HAS NO PMD OR ONCOLOGIST AT THIS TIME, I RECOMMENDED RE ESTABLISHING CONTACT WITH HER ONCOLOGIST AND PMD; RETURN IF WORSE. - Diagnoses Provider Diagnoses: Abdominal pain Discharge - Discharge Plan Condition: Stable Disposition: HOME Prescriptions: Dicyclomine CAP* [Bentyl CAP*] 10 mg PO TID PRN #30 cap PRN Reason: Pain Patient Education Materials: Abdominal Pain (ED) Referrals: [facility] [place] PHYSICIAN REFERRAL [Outside] Juan Ventura MD [Medical Doctor] - Additional Instructions: FOLLOW UP WITH YOUR PRIMARY CARE DOCTOR AND YOUR NATIONAL GUARD MEMBER/ONCOLOGIST. RETURN TO THE EMERGENCY DEPARTMENT FOR ANY WORSENING OF YOUR CONDITION; PAIN, FEVER, YOU FEEL ILL OR QUESTIONS OR CONCERNS. The documentation as recorded by the Matty leon Elizabeth accurately reflects the service I personally performed and the decisions made by me, Santhosh Otero MD.
== END 2017-09-26 18:16 | disposition home or self-care (01) ==
LOC: ED 11:21
DX: R10.32 Left lower quadrant pain (principal)
CPT/HCPCS: 36415; 74177; 76705; 80053; 81003; 83605; 84702; 85025; 86140; 96361; 96374; 99283; A9270-GY; J1885; Q9967

== ENCOUNTER 2017-11-12 13:47 | Emergency (ER) | payer SELFPAY ==
[2017-11-12 13:53] VITALS: BP 120/71
--- NOTE | 2017-11-12 17:40 | ED ---
Srikanth Oneill Gabriel, scribed for Curt Porter MD on 11/12/17 at 1438 . Skin Complaint - HPI Summary HPI Summary: This patient is a 26 year old F presenting to [facility] with a chief complaint of a lump on her right thigh that has been increasing in size for the past 3 months. Pt had melanoma 6 inches from the current lump. She has seen her geospatial intelligence analyst and another unspecified doctor for it. The geospatial intelligence analyst told her to follow up with them in 6 weeks. - History of Current Complaint Chief Complaint: EDExtremityLower Time Seen by Provider: 11/12/17 14:21 Stated Complaint: RT LEG PROBLEM Hx Obtained From: Patient Hx Last Menstrual Period: unsure on depo Onset/Duration: Still Present Timing: Constant Onset Severity: Mild Current Severity: Mild Pain Intensity: 0 Pain Scale Used: 0-10 Numeric Skin Location: Leg - r thigh Associated Signs & Symptoms: Negative - fever - Allergy/Home Medications Allergies/Adverse Reactions: Allergies Allergy/AdvReac Type Severity Reaction Status Date / Time No Known Allergies Allergy Verified 11/12/17 13:53 Home Medications: Home Medications NK [No Home Medications Reported] 11/12/17 [History Confirmed 11/12/17] PMH/Surg Hx/FS Hx/Imm Hx Endocrine/Hematology History: Denies: Hx Diabetes, Hx Thyroid Disease Cardiovascular History: Denies: Hx Hypertension, Hx Pacemaker/ICD Respiratory History: Denies: Hx Asthma, Hx Chronic Obstructive Pulmonary Disease (COPD) GI History: Denies: Hx Ulcer History: Denies: Hx Dialysis, Hx Renal Disease Sensory History: Reports: Hx Contacts or Glasses - BOTH Denies: Hx Hearing Aid Opthamlomology History: Reports: Hx Contacts or Glasses - BOTH Neurological History: Reports: Hx Headaches Psychiatric History: Reports: Hx Anxiety, Hx Depression Denies: Hx Panic Disorder - Cancer History Cancer Type, Location and Year: MELANOMA - dx 03/2016; not currently using interferon Hx Chemotherapy: Yes - Surgical History Surgery Procedure, Year, and Place: Rt THIGH - MOLE REMOVED - MELANOMA +, WIDE EXCISION WITH LYMPH NODE REMOVED FROM GROIN,left shoulder melanoma. R ear, R arm mole removal Infectious Disease History: No Infectious Disease History: Denies: Hx Hepatitis, Hx Human Immunodeficiency Virus (HIV), Traveled Outside the [place] in Last 30 Days - Family History Known Family History: Positive: Hypertension - Father, Diabetes - Grandfather - Social History Alcohol Use: Rare Hx Substance Use: No Substance Use Type: Reports: None Hx Tobacco Use: No Smoking Status (MU): Never Smoked Tobacco Review of Systems Negative: Fever Positive: Other - lump at right thigh All Other Systems Reviewed And Are Negative: Yes Physical Exam - Summary Physical Exam Summary: Appearance: Well appearing, no pain distress Skin: there is a 2cm mobile mass in the anterior proximal right thigh, there is also a surgical scar on the right thigh Head/face: normal Eyes: EOMI, CAMRYN ENT: normal Neck: supple, non-tender Respiratory: CTA, breath sounds present Cardiovascular: RRR, pulses symmetrical Abdomen: non-tender, soft Bowel Sounds: present Musculoskeletal: normal, strength/ROM intact Neuro: normal, sensory motor intact, A&Ox3 Triage Information Reviewed: Yes Vital Signs On Initial Exam: Initial Vitals Temp Pulse Resp BP Pulse Ox 99.4 F 86 16 120/71 100 11/12/17 13:50 11/12/17 13:50 11/12/17 13:50 11/12/17 13:50 11/12/17 13:50 Vital Signs Reviewed: Yes Diagnostics - Vital Signs Vital Signs Temp Pulse Resp BP Pulse Ox 11/12/17 14:13 75 100 11/12/17 13:50 99.4 F 86 16 120/71 100 - Laboratory Lab Statement: Any lab studies that have been ordered have been reviewed, and results considered in the medical decision making process. Course/Dx - Course Course Of Treatment: Show the history of melanoma who presents with soft tissue mass only several centimeters from her melanoma surgery scar. She has had this since August and has seen dermatology and her primary care doctor for it. The skin overlying is normal color. It is not a site for lymphadenopathy. It is most likely lipoma which is what I've told her however it needs to be excised by dermatology and biopsied given her history. She is explained that this is not routinely done in the ER and got noticeably upset. I have suggested that she call her geospatial intelligence analyst now to schedule follow-up. - Diagnoses Provider Diagnoses: History of melanoma, Mass of soft tissue of right lower extremity Discharge - Sign-Out/Discharge Documenting (check all that apply): Discharge/Admit/Transfer - Discharge Plan Condition: Good Disposition: HOME Patient Education Materials: Soft Tissue Mass (ED) Referrals: Rose Mary Jarquin [Medical Doctor] - Additional Instructions: Call TODAY for a follow-up appointment. This will need to be removed and/or biopsied by your doctor immediately. - Billing Disposition and Condition Condition: GOOD Disposition: HOME The documentation as recorded by the Srikanth leon Gabriel accurately reflects the service I personally performed and the decisions made by me, Curt Porter MD.
== END 2017-11-12 14:32 | disposition home or self-care (01) ==
LOC: ED 13:47
DX: R22.41 Localized swelling, mass and lump, right lower limb (principal); Z85.820 Personal history of malignant melanoma of skin
CPT/HCPCS: 99282

== ENCOUNTER 2018-02-07 23:32 | Emergency (ER) | payer OTHER ==
[2018-02-08] MEDS ORDERED: Ibuprofen TAB* 600 MG PO ONE (02:08)
[2018-02-08] MEDS ORDERED: Sulfamethox/Trimethoprim DS 800/160* TAB PO ONE (02:08)
--- NOTE | 2018-02-08 02:11 | ED ---
Skin Complaint - HPI Summary HPI Summary: Patient with history of melanoma on right upper thigh complains of mass on anterior right upper thigh since August. Patient states mass has been getting larger and more painful. Being followed by dermatology and surgery. Seen by surgery 2 weeks ago, with appointment on February 15 for mass removal. Mass has been biopsied. Patient concerned because pain is increasing. Denies fever, cough, sore throat, CP, SOB, N/V/V abdominal pain, change in urinary BM. Medical history is none. - History of Current Complaint Chief Complaint: EDExtremityLower Time Seen by Provider: 02/08/18 00:46 Stated Complaint: RT LEG PAIN Hx Obtained From: Patient Hx Last Menstrual Period: unsure on depo Onset/Duration: Started Weeks Ago Skin Exposure Onset/Duration: Weeks Ago Timing: Constant Onset Severity: Mild Current Severity: Moderate Pain Intensity: 8 Pain Scale Used: 0-10 Numeric Skin Location: Discrete Aggravating Symptom(s): Clothing Alleviating Symptom(s): Nothing Associated Signs & Symptoms: Negative - Allergy/Home Medications Allergies/Adverse Reactions: Allergies Allergy/AdvReac Type Severity Reaction Status Date / Time No Known Allergies Allergy Verified 02/07/18 23:36 PMH/Surg Hx/FS Hx/Imm Hx Endocrine/Hematology History: Denies: Hx Anticoagulant Therapy, Hx Diabetes, Hx Thyroid Disease Cardiovascular History: Denies: Hx Hypertension, Hx Pacemaker/ICD Respiratory History: Denies: Hx Asthma, Hx Chronic Obstructive Pulmonary Disease (COPD) GI History: Denies: Hx Ulcer History: Denies: Hx Dialysis, Hx Renal Disease Sensory History: Reports: Hx Contacts or Glasses - BOTH Denies: Hx Hearing Aid Opthamlomology History: Reports: Hx Contacts or Glasses - BOTH Neurological History: Reports: Hx Headaches Psychiatric History: Reports: Hx Anxiety, Hx Depression Denies: Hx Panic Disorder - Cancer History Cancer Type, Location and Year: MELANOMA - dx 03/2016; not currently using interferon Hx Chemotherapy: Yes - Surgical History Surgery Procedure, Year, and Place: Rt THIGH - MOLE REMOVED - MELANOMA +, WIDE EXCISION WITH LYMPH NODE REMOVED FROM GROIN,left shoulder melanoma. R ear, R arm mole removal Infectious Disease History: No Infectious Disease History: Denies: Hx Hepatitis, Hx Human Immunodeficiency Virus (HIV), Traveled Outside the [place] in Last 30 Days - Family History Known Family History: Positive: Hypertension - Father, Diabetes - Grandfather - Social History Alcohol Use: Rare Hx Substance Use: No Substance Use Type: Reports: None Hx Tobacco Use: No Smoking Status (MU): Never Smoked Tobacco Review of Systems Constitutional: Negative Eyes: Negative ENT: Negative Cardiovascular: Negative Respiratory: Negative Gastrointestinal: Negative Genitourinary: Negative Musculoskeletal: Negative Skin: Other Neurological: Negative Psychological: Normal All Other Systems Reviewed And Are Negative: Yes Physical Exam - Summary Physical Exam Summary: 4 centimeter by 4 cm circular mass on anterior upper thigh. Localized tenderness and erythema. No evidence of purulent drainage. Masses firm, nonfluctuant. Triage Information Reviewed: Yes Vital Signs On Initial Exam: Initial Vitals Temp Pulse Resp BP Pulse Ox 98.0 F 107 16 113/61 100 02/07/18 23:33 02/07/18 23:33 02/07/18 23:33 02/07/18 23:33 02/07/18 23:33 Vital Signs Reviewed: Yes Appearance: Positive: Well-Appearing Skin: Positive: Warm Head/Face: Positive: Normal Head/Face Inspection Eyes: Positive: Normal Neck: Positive: Supple Respiratory/Lung Sounds: Positive: Clear to Auscultation Cardiovascular: Positive: Normal Abdomen Description: Positive: Nontender Musculoskeletal: Positive: Normal Neurological: Positive: Normal Psychiatric: Positive: Normal AVPU Assessment: Alert - Mahi Coma Scale Best Eye Response: 4 - Spontaneous Best Motor Response: 6 - Obeys Commands Best Verbal Response: 5 - Oriented Coma Scale Total: 15 Diagnostics - Vital Signs Vital Signs Temp Pulse Resp BP Pulse Ox 02/07/18 23:33 98.0 F 107 16 113/61 100 - Laboratory Lab Statement: Any lab studies that have been ordered have been reviewed, and results considered in the medical decision making process. Course/Dx - Course Course Of Treatment: Patient with history of melanoma on right upper thigh complains of mass on anterior right upper thigh since August. Patient states mass has been getting larger and more painful. Being followed by dermatology and surgery. Seen by surgery 2 weeks ago, with appointment on February 15 for mass removal. Mass has been biopsied. Patient concerned because pain is increasing. Denies fever, cough, sore throat, CP, SOB, N/V/V abdominal pain, change in urinary BM. Medical history is none. 4 centimeter by 4 cm circular mass on anterior upper thigh. Localized tenderness and erythema. No evidence of purulent drainage. Masses firm, nonfluctuant. Vital signs normal. Started on Bactrim here in the ED. Rx for same. Follow-up with surgical appointment next week - Diagnoses Provider Diagnoses: Cellulitis, Localized skin mass, lump, or swelling Discharge - Sign-Out/Discharge Documenting (check all that apply): Patient Departure - Discharge Plan Condition: Stable Disposition: HOME Prescriptions: Ibuprofen TAB* [Motrin TAB* 600 MG] 600 mg PO Q8H PRN 7 Days #20 tab PRN Reason: Pain Sulfamethox/Trimethoprim DS* [Bactrim DS 800/160 TAB*] 1 tab PO BID 10 Days #20 tab Patient Education Materials: Lipoma (ED), Soft Tissue Mass (ED), Lipoma Removal (DC) Referrals: No Primary Care Phys,NOPCP [Primary Care Provider] - Additional Instructions: Take antibiotics as directed. Follow-up with your surgeon for removal of skin mass. Return to the ED for any new or worsening symptoms - Billing Disposition and Condition Condition: STABLE Disposition: Home
[2018-02-08 02:26] VITALS: BP 96/50
== END 2018-02-08 02:26 | disposition home or self-care (01) ==
LOC: ED 23:32
DX: L03.115 Cellulitis of right lower limb (principal); M79.651 Pain in right thigh; M79.89 Other specified soft tissue disorders
CPT/HCPCS: 99282; A9270-GY

== ENCOUNTER 2018-04-06 12:17 | Emergency (ER) | payer OTHER ==
[2018-04-06 12:32] VITALS: BP 106/59
--- NOTE | 2018-04-06 12:37 | UC ---
Complaint Female HPI - HPI Summary HPI Summary: 27 yo female presents with urinary frequency, urgency, and hematuria. Her symptoms began 3 days ago, but her hematuria she noticed today. She has had UTIs in the past and this feels the same. She notes that about a month ago she had lymph nodes removed from her right groin due to melanoma, but has no issues with this site. Denies fever, chills, flank pain, abdominal pain, n/v, abnormal vaginal discharge/bleeding. - History Of Current Complaint Chief Complaint: UCGU Stated Complaint: URINARY ISSUE Time Seen by Provider: 04/06/18 12:36 Hx Obtained From: Patient Hx Last Menstrual Period: depo Onset/Duration: Sudden Onset Timing: Constant Severity Initially: Mild Severity Currently: Mild Pain Intensity: 4 Pain Scale Used: 0-10 Numeric - Allergies/Home Medications Allergies/Adverse Reactions: Allergies Allergy/AdvReac Type Severity Reaction Status Date / Time No Known Allergies Allergy Verified 04/06/18 12:31 Home Medications: Home Medications Nivolumab [Opdivo] 100 mg IV 04/06/18 [History] PMH/Surg Hx/FS Hx/Imm Hx - Additional Past Medical History Additional PMH: Melanoma Other History Of: Negative For: Anticoagulant Therapy - Surgical History Surgical History: Yes Surgery Procedure, Year, and Place: Rt THIGH - MOLE REMOVED - MELANOMA +, WIDE EXCISION WITH LYMPH NODE REMOVED FROM GROIN,left shoulder melanoma. R ear, R arm mole removal - Family History Known Family History: Positive: Hypertension - Father, Diabetes - Grandfather - Social History Occupation: Employed Full-time Lives: With Family Alcohol Use: Occasionally Substance Use Type: None Smoking Status (MU): Current Some Day Smoker - Immunization History Vaccination Up to Date: Yes Review of Systems Constitutional: Negative Skin: Negative Respiratory: Negative Cardiovascular: Negative Gastrointestinal: Negative Genitourinary: Dysuria, Hematuria, Frequency, Urgency Musculoskeletal: Negative Neurological: Negative Psychological: Negative All Other Systems Reviewed And Are Negative: Yes Physical Exam - Summary Physical Exam Summary: GENERAL: NAD. WDWN. No pain distress. SKIN: No rashes, sores, lesions, or open wounds. NECK: Supple. Nontender. No lymphadenopathy. CHEST: CTAB. No r/r/w. No accessory muscle use. Breathing comfortably and in no distress. CV: RRR. Without m/r/g. Pulses intact. Cap refill <2seconds ABDOMEN: Soft. NTTP. No distention or guarding. No CVA tenderness. Bowel sounds present NEURO: Alert. PSYCH: Age appropriate behavior. Triage Information Reviewed: Yes Vital Signs: Initial Vital Signs Temp 98.6 F 04/06/18 12:28 Pulse 106 04/06/18 12:28 Resp 18 04/06/18 12:28 BP 106/59 04/06/18 12:28 Pulse Ox 100 04/06/18 12:28 Laboratory Tests 04/06/18 12:41 POC Urine Color Red A POC Urine Clarity Slightly cloudy POC Urine pH 7.0 POC Ur Specif Weir 1.020 POC Urine Protein 2+ A POC Ur Glucose (UA) Negative POC Urine Ketones Trace A POC Urine Blood 3+ A POC Urine Nitrite Negative POC Urine Bilirubin 1+ A POC Urine Urobilinogen 0.2 POC U Leukocyte Esteras 1+ A Vital Signs Reviewed: Yes Complaint Female Dx - Course Course Of Treatment: UA with sign of infection. Given her recent procedure and hx of melanoma - will treat with Cipro. Urine sent for culture - Differential Dx/Diagnosis Provider Diagnoses: UTI Discharge - Sign-Out/Discharge Documenting (check all that apply): Patient Departure All imaging exams completed and their final reports reviewed: No Studies - Discharge Plan Condition: Stable Disposition: HOME Prescriptions: Ciprofloxacin TAB* [Cipro 500 MG TAB*] 500 mg PO BID #10 tab Patient Education Materials: Urinary Tract Infection in Women (DC) Referrals: No Primary Care Phys,NOPCP [Primary Care Provider] - Additional Instructions: If you develop a fever, shortness of breath, chest pain, new or worsening symptoms - please call your PCP or go to the ED. - Billing Disposition and Condition Condition: STABLE Disposition: Home
== END 2018-04-06 13:02 | disposition home or self-care (01) ==
LOC: UCEAST 12:17
DX: N39.0 Urinary tract infection, site not specified (principal); R31.9 Hematuria, unspecified; Z87.440 Personal history of urinary (tract) infections; Z85.820 Personal history of malignant melanoma of skin; Z72.0 Tobacco use
CPT/HCPCS: 81003; 87077; 87086; 99212; G0463

== ENCOUNTER 2018-12-07 10:05 | Emergency (ER) | payer OTHER ==
[2018-12-07 10:12] VITALS: BP 104/65
--- NOTE | 2018-12-07 10:54 | UC ---
Skin Complaint HPI - HPI Summary HPI Summary: 27 yo female presents with rash. She tells me that 3 days ago she started getting a diffuse red rash on her abdomen, arms, and neck. Arms are improving, but rash still present on torso and neck. States very itchy and appears "hive- like". She shares a bed and living space with her boyfriend and he has no rash. Has been applying a steroid cream, but rash still spreading. Denies difficulty breathing, swelling, SOB, or chest pain. No new medications, soaps, detergents, or environmental changes. No recent travel - History of Current Complaint Chief Complaint: UCSkin Time Seen by Provider: 12/07/18 10:54 Stated Complaint: RASH Hx Obtained From: Patient Hx Last Menstrual Period: depo Onset/Duration: Sudden Onset Onset Severity: Moderate Current Severity: Moderate Pain Intensity: 5 Pain Scale Used: 0-10 Numeric - Allergy/Home Medications Allergies/Adverse Reactions: Allergies Allergy/AdvReac Type Severity Reaction Status Date / Time No Known Allergies Allergy Verified 12/07/18 10:12 Home Medications: Home Medications Gabapentin 1 tab PO DAILY 12/07/18 [History Confirmed 12/07/18] PMH/Surg Hx/FS Hx/Imm Hx - Additional Past Medical History Additional PMH: Melanoma Other History Of: Negative For: Anticoagulant Therapy - Surgical History Surgical History: Yes Surgery Procedure, Year, and Place: Rt THIGH - MOLE REMOVED - MELANOMA +, WIDE EXCISION WITH LYMPH NODE REMOVED FROM GROIN,left shoulder melanoma. R ear, R arm mole removal - Family History Known Family History: Positive: Hypertension - Father, Diabetes - Grandfather - Social History Lives: With Family Alcohol Use: Occasionally Substance Use Type: None Smoking Status (MU): Current Some Day Smoker - Immunization History Most Recent Influenza Vaccination: 2016 Most Recent Pneumonia Vaccination: never Vaccination Up to Date: Yes Review of Systems All Other Systems Reviewed And Are Negative: Yes Constitutional: Positive: Negative Skin: Positive: Rash Eyes: Positive: Negative ENT: Positive: Negative Respiratory: Positive: Negative Cardiovascular: Positive: Negative Gastrointestinal: Positive: Negative Neurovascular: Positive: Negative Neurological: Positive: Negative Psychological: Positive: Negative Physical Exam - Summary Physical Exam Summary: GENERAL: NAD. WDWN. No pain distress. SKIN: Scattered urticaria on neck, torso, back, and faint on b/l arms. No open wound, streaking, drainage, or bleeding. NECK: Supple. Nontender. No lymphadenopathy. CHEST: No accessory muscle use. Breathing comfortably and in no distress. CV: Pulses intact. Cap refill <2seconds NEURO: Alert. PSYCH: Age appropriate behavior. Triage Information Reviewed: Yes Vital Signs: Initial Vital Signs Temp 98.6 F 12/07/18 10:09 Pulse 110 12/07/18 10:09 Resp 20 12/07/18 10:09 BP 104/65 12/07/18 10:09 Pulse Ox 100 12/07/18 10:09 Vital Signs Reviewed: Yes Course/Dx - Course Course Of Treatment: Suspect allergic reaction - will treat with prednisone and benadryl cream and have her f/u if symptoms do not improve in 2-3 days - Diagnoses Provider Diagnosis: Urticaria Discharge - Sign-Out/Discharge Documenting (check all that apply): Patient Departure All imaging exams completed and their final reports reviewed: No Studies - Discharge Plan Condition: Stable Disposition: HOME Prescriptions: diPHENhydraMINE CREAM 2%(NF) [Benadryl X-Strength CREAM 2 % (NF)] 1 applic TOPICAL BID #1 tube predniSONE TAB* [Deltasone 20 MG TAB*] 40 mg PO DAILY #9 tab Patient Education Materials: Urticaria (ED) Referrals: No Primary Care Phys,NOPCP [Primary Care Provider] - Additional Instructions: If you develop a fever, shortness of breath, chest pain, new or worsening symptoms - please call your PCP or go to the ED immediately. - Billing Disposition and Condition Condition: STABLE Disposition: Home
== END 2018-12-07 11:22 | disposition home or self-care (01) ==
LOC: UCEAST 10:05
DX: L50.9 Urticaria, unspecified (principal); F17.200 Nicotine dependence, unspecified, uncomplicated
CPT/HCPCS: 99212; G0463

== ENCOUNTER 2019-04-17 10:21 | Emergency (ER) | payer OTHER ==
--- NOTE | 2019-04-17 10:30 | UC ---
Abdominal Pain Female HPI - HPI Summary HPI Summary: 28 yo female presents with diarrhea. She is currently undergoing immunotherapy for melanoma to her right thigh - being followed by [facility]. She tells me that for the past week she has been having diarrhea. - History of Current Complaint Stated Complaint: DIARRHEA, AND ABDOMINAL PAIN Time Seen by Provider: 04/17/19 10:28 Hx Obtained From: Patient Hx Last Menstrual Period: depo Allergies/Adverse Reactions: Allergies Allergy/AdvReac Type Severity Reaction Status Date / Time No Known Allergies Allergy Verified 04/17/19 10:33 PMH/Surg Hx/FS Hx/Imm Hx Other History Of: Negative For: Anticoagulant Therapy - Surgical History Surgical History: Yes Surgery Procedure, Year, and Place: Rt THIGH - MOLE REMOVED - MELANOMA +, WIDE EXCISION WITH LYMPH NODE REMOVED FROM GROIN,left shoulder melanoma. R ear, R arm mole removal - Family History Known Family History: Positive: Hypertension - Father, Diabetes - Grandfather - Social History Alcohol Use: Occasionally Substance Use Type: None Smoking Status (MU): Current Some Day Smoker - Immunization History Most Recent Influenza Vaccination: 2016 Most Recent Pneumonia Vaccination: never Vaccination Up to Date: Yes Discharge ED - Discharge Plan Referrals: No Primary Care Phys,NOPCP [Primary Care Provider] -
[2019-04-17 10:32] VITALS: BP 107/72
== END 2019-04-17 10:51 | disposition left against medical advice (07) ==
LOC: UCEAST 10:21
DX: Z53.21 Procedure and treatment not carried out due to patient leaving prior to being seen by health care provider (principal)

== ENCOUNTER 2019-04-17 11:17 | Emergency (ER) | payer OTHER ==
[2019-04-17] MEDS ORDERED: Ondansetron INJ* 2 MG/ML VIAL IV ONE (13:37)
[2019-04-17] MEDS ORDERED: NS 0.9% 1000 ML** 1,000 ML IV ONE (13:37)
--- NOTE | 2019-04-17 13:41 | ED ---
Abdominal Pain/Female - HPI Summary HPI Summary: The patient is a 28 y/o F presenting to [facility] with a chief complaint of abdominal cramping and diarrhea onset one week ago. She reports that she began immunotherapy a week ago for melanoma at [facility] and has since been experiencing symptoms of diffuse abdominal cramping and watery diarrhea without blood but is greenish in color. She denies any fevers. Currently, her symptoms are rated 4/10 in severity. No recent traveling. Her boyfriend at home has GI bug. LNMP: two weeks ago. PMHx: melanoma, anxiety, depression. Nonsmoker, no EtOH, no substance use. Medications reviewed. Allergies noted. - History of Current Complaint Chief Complaint: EDNauseaVomitDiarrh Stated Complaint: DIARRHEA X1 WK PER PT Time Seen by Provider: 04/17/19 13:36 Hx Obtained From: Patient Hx Last Menstrual Period: 04/05/19 Onset/Duration: Gradual Onset, Lasting Days - one week, Still Present Timing: Days Severity Initially: Mild Severity Currently: Moderate Pain Intensity: 4 Pain Scale Used: 0-10 Numeric Location: Diffuse Radiates: No Character: Cramping Aggravating Factor(s): Nothing Alleviating Factor(s): Nothing Associated Signs and Symptoms: Positive: Diarrhea - watery. Negative: Fever, Blood in Stool Allergies/Adverse Reactions: Allergies Allergy/AdvReac Type Severity Reaction Status Date / Time No Known Allergies Allergy Verified 04/17/19 10:33 Home Medications: Home Medications Ibuprofen TAB* [Advil TAB*] 200 mg PO Q6H PRN 04/17/19 [History Confirmed ] PMH/Surg Hx/FS Hx/Imm Hx Endocrine/Hematology History: Denies: Hx Anticoagulant Therapy, Hx Diabetes, Hx Thyroid Disease Cardiovascular History: Denies: Hx Hypertension, Hx Pacemaker/ICD Respiratory History: Denies: Hx Asthma, Hx Chronic Obstructive Pulmonary Disease (COPD) GI History: Denies: Hx Ulcer History: Denies: Hx Dialysis, Hx Renal Disease Sensory History: Reports: Hx Contacts or Glasses - BOTH Denies: Hx Hearing Aid Opthamlomology History: Reports: Hx Contacts or Glasses - BOTH Neurological History: Reports: Hx Headaches Psychiatric History: Reports: Hx Anxiety, Hx Depression Denies: Hx Panic Disorder - Cancer History Cancer Type, Location and Year: MELANOMA - dx 03/2016; active Immunotherapy at [facility] 2019 Hx Chemotherapy: Yes - Surgical History Surgical History: Yes Surgery Procedure, Year, and Place: Rt THIGH - MOLE REMOVED - MELANOMA +, WIDE EXCISION WITH LYMPH NODE REMOVED FROM GROIN,left shoulder melanoma. R ear, R arm mole removal Infectious Disease History: No Infectious Disease History: Denies: Hx Hepatitis, Hx Human Immunodeficiency Virus (HIV), Traveled Outside the [place] in Last 30 Days - Family History Known Family History: Positive: Hypertension - Father, Diabetes - Grandfather - Social History Alcohol Use: None Hx Substance Use: No Substance Use Type: Reports: None Hx Tobacco Use: No Smoking Status (MU): Never Smoked Tobacco Review of Systems Positive: Abdominal Pain - diffuse cramping, Diarrhea - watery, green. Negative : Other - blood in stool All Other Systems Reviewed And Are Negative: Yes Physical Exam - Summary Physical Exam Summary: VITAL SIGNS: Reviewed. GENERAL: Patient is a well-developed and nourished female who is lying comfortable in the stretcher. Patient is not in any acute respiratory distress. HEAD AND FACE: No signs of trauma. No ecchymosis, hematomas or skull depressions. No sinus tenderness. EYES: PERRLA, EOMI x 2, No injected conjunctiva, no nystagmus. EARS: Hearing grossly intact. Ear canals and tympanic membranes are within normal limits. MOUTH: Oropharynx within normal limits. NECK: Supple, trachea is midline, no adenopathy, no JVD, no carotid bruit, no c- spine tenderness, neck with full ROM. CHEST: Symmetric, no tenderness at palpation. LUNGS: Clear to auscultation bilaterally. No wheezing or crackles. CVS: Regular rate and rhythm, S1 and S2 present, no murmurs or gallops appreciated. ABDOMEN: Soft, non-tender. No signs of distention. No rebound, no guarding, and no masses palpated. Bowel sounds are normal. EXTREMITIES: FROM in all major joints, no edema, no cyanosis or clubbing. NEURO: Alert and oriented x 3. No acute neurological deficits. Speech is normal and follows commands. SKIN: Dry and warm. Triage Information Reviewed: Yes Vital Signs On Initial Exam: Initial Vitals Temp Pulse Resp BP Pulse Ox 99.3 F 89 16 129/83 98 04/17/19 11:27 04/17/19 11:27 04/17/19 11:27 04/17/19 11:27 04/17/19 11:27 Vital Signs Reviewed: Yes Procedures - Sedation Patient Received Moderate/Deep Sedation with Procedure: No Diagnostics - Vital Signs Vital Signs Temp Pulse Resp BP Pulse Ox 04/17/19 13:30 99.4 F 91 16 110/59 100 04/17/19 11:27 99.3 F 89 16 129/83 98 - Laboratory Result Diagrams: 04/17/19 13:58 04/17/19 13:58 Lab Statement: Any lab studies that have been ordered have been reviewed, and results considered in the medical decision making process. - Radiology Abdomen X-Ray Radiology Interpretation Completed By: Radiologist Summary of Radiographic Findings: Impression: No free air or obstruction is noted. ED physician has reviewed this report. Re-Evaluation - Re-Evaluation First Eval Re-Evaluation Time: 16:40 Change: Unchanged Comment: Patient has been unable to provide a stool sample. She would like to go home. We discussed all results and plan for discharge home. Abdominal Pain Fem Course/Dx - Course Course Of Treatment: Patient is a 28 y/o F with a chief complaint of diffuse abdominal cramping and watery diarrhea green in color without blood onset a week ago following an immunotherapy treatment for melanoma. Upon arrival to the emergency department, the patient was started with IV access and normal saline IV. The patient is not ill looking or toxic. Blood work without any significant abnormality. The WBCs are 6.3, and the CRP is less than 1. She was observed for approximately 5 hours, and the patient was not able to give any sample of the stool. The patient reports that she has tried multiple times to have a bowel movement and she is unsuccessful. Abdominal x-ray impression: No free air or obstruction is noted. At this point the patient is feeling better. The patient is tolerating by mouth. The patient requests to be discharged home and follow up with the primary care physician and her oncologist in [place]. Since the patient is feeling better, and she has abnormal findings, she will be discharged home with follow up with primary care physician. I discussed all the findings and test results with the patient. Patient was instructed to return to the emergency room immediately if any of the symptoms return worsens. Plan of care was discussed with the patient and understands and agrees. All questions were answered at patient satisfaction. There were no further complaints or concerns. Lung exam before discharge: CTA B/L. Good air exchange. No wheezing or crackles heard. CVS: S1 and S2 present. No murmurs appreciated. Patient is alert and oriented x 3. Patient is hemodynamically stable. Patient will be discharged home with follow up PCP in the next 2-3 days. - Diagnoses Provider Diagnoses: Diarrhea Discharge ED - Sign-Out/Discharge Documenting (check all that apply): Patient Departure - Patient will be discharged home. - Discharge Plan Condition: Stable Disposition: HOME Patient Education Materials: Acute Diarrhea (ED) Referrals: [facility] [Outside] - 3 Days Additional Instructions: Follow up with your primary care provider in 2-3 days. Follow up with your oncologist in [place] in 2-3 days. Return to the emergency department for any new or worsening symptoms. - Billing Disposition and Condition Condition: STABLE Disposition: Home - Attestation Statements Document Initiated by Cristine: Yes Documenting Scribe: Milvia Jeffers Provider For Whom Cristine is Documenting (Include Credential): Dr. Ang Kaye MD Scribe Attestation: Milvia Oneill scribed for Dr. Ang Kaye MD on 04/18/19 at 1847. Scribe Documentation Reviewed: Yes Provider Attestation: The documentation as recorded by the Milvia leon accurately reflects the service I personally performed and the decisions made by me, Dr. Ang Kaye MD Status of Scribe Document: Viewed
[2019-04-17 14:09] LABS: ABS Eosinophils 0.1 10^3/ul (0-0.6); ABS Lymphocytes 1.5 10^3/ul (1.0-4.8); ABS Monocytes 0.6 10^3/ul (0-0.8); Eosinophil % 1.9 %; Hematocrit 42 % (35-47); Hemoglobin 14.3 g/dL (12.0-16.0); Lymphocyte % 24.5 %; Mean Corpuscular HGB Conc 34 g/dL (31-36); Mean Corpuscular Hemoglobin 30 pg (27-31); Mean Corpuscular Volume 88 fL (80-97); Mean Platelet Volume 7.9 fL (7.4-10.4); Platelet Count 238 10^3/uL (150-450); Red Blood Count 4.79 10^6 /uL (3.70-4.87); Red Cell Distribution Width 14 % (10-15); White Blood Count 6.3 10^3/uL (3.5-10.8)
[2019-04-17 14:35] LABS: ALT 18 U/L (7-52); AST 21 U/L (13-39); Albumin 4.9 g/dL (3.2-5.2); Albumin/Globulin Ratio 1.9 (1-3); Alkaline Phosphatase 66 U/L (34-104); Anion Gap 9 mmol/L (2-11); BUN/Creatinine Ratio 10.2 (8-20); Blood Urea Nitrogen 9 mg/dL (6-24); C Reactive Protein < 1.00 mg/L (<8.01); CO2 Carbon Dioxide 24 mmol/L (22-32); Calcium 9.8 mg/dL (8.6-10.3); Chloride 106 mmol/L (101-111); EGFR African American 92.6 (>60); EGFR Non-African American 76.5 (>60); Globulin 2.6 g/dL (2-4); Glucose 79 mg/dL (70-100); Potassium 3.9 mmol/L (3.5-5.0); Sodium 139 mmol/L (135-145); Total Protein 7.5 g/dL (6.4-8.9)
[2019-04-17] MEDS ORDERED: Ondansetron INJ* 2 MG/ML VIAL ONE (14:35)
[2019-04-17 14:38] LABS: HCG Pregnancy < 0.60 mIU/mL
[2019-04-17 17:32] VITALS: BP 96/59
== END 2019-04-17 16:51 | disposition home or self-care (01) ==
LOC: ED 11:17
DX: R19.7 Diarrhea, unspecified (principal); R51 Headache; F41.9 Anxiety disorder, unspecified; F32.9 Major depressive disorder, single episode, unspecified; Z85.820 Personal history of malignant melanoma of skin
CPT/HCPCS: 36415; 74019; 80053; 83605; 83690; 83735; 84702; 85025; 86140; 87040; 96361; 96374; 99282; J2405

== ENCOUNTER 2019-10-03 23:57 | Emergency (ER) | payer OTHER ==
[2019-10-04] MEDS ORDERED: Ketorolac INJ* 15 MG/ML 1 ML VIAL IV ONE (00:12)
[2019-10-04] MEDS ORDERED: NS 0.9% 1000 ML** 1,000 ML IV ONE ×3 (00:12→01:05)
[2019-10-04] MEDS ORDERED: Ondansetron INJ* 2 MG/ML VIAL IV ONE (00:12)
--- NOTE | 2019-10-04 00:15 | ED ---
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 Patient states she was at rest when the flank pain began. She also reports dysuria, hematuria, urinary frequency, and decreased urine output since 10/02/19. Patient denies fever, nausea, vomiting, diarrhea, or changes in appetite. Movement worsens the flank pain. No alleviating factors are reported. PMHx is significant for melanoma for which she receives treatments every 3 months. PSHx is significant for melanoma surgery. FMHx is denied. Patient receives a Depo-Provera injection for contraception and states she is due for another. Allergies are denied. - History of Current Complaint Chief Complaint: EDFlankPain Stated Complaint: LT FLANK PAIN PER PT Time Seen by Provider: 10/04/19 00:12 Hx Obtained From: Patient Hx Last Menstrual Period: 07/13/2019 Onset/Duration: Sudden Onset, Still Present Timing: Constant Severity Initially: Severe Severity Currently: Severe Pain Intensity: 10 Pain Scale Used: 0-10 Numeric Location: Flank - Left Radiates: Yes Radiates to: Back Aggravating Factor(s): Movement Alleviating Factor(s): Nothing Associated Signs and Symptoms: Positive: Back Pain - Radiates from the left flank, Urinary Symptoms - Positive dysuria, hematuria, urinary frequency, and decreased urine output. Negative: Fever, Decreased Appetite, Nausea, Vomiting, Diarrhea Allergies/Adverse Reactions: Allergies Allergy/AdvReac Type Severity Reaction Status Date / Time No Known Allergies Allergy Verified 10/04/19 00:07 Home Medications: Home Medications Tamsulosin CAP* [Flomax CAP*] 0.4 mg PO DAILY #7 cap 10/04/19 [Rx] PMH/Surg Hx/FS Hx/Imm Hx Previously Healthy: Yes Endocrine/Hematology History: Denies: Hx Anticoagulant Therapy, Hx Diabetes, Hx Thyroid Disease Cardiovascular History: Denies: Hx Hypertension, Hx Pacemaker/ICD Respiratory History: Denies: Hx Asthma, Hx Chronic Obstructive Pulmonary Disease (COPD) GI History: Denies: Hx Ulcer History: Denies: Hx Dialysis, Hx Renal Disease Sensory History: Reports: Hx Contacts or Glasses - BOTH Denies: Hx Hearing Aid Opthamlomology History: Reports: Hx Contacts or Glasses - BOTH Neurological History: Reports: Hx Headaches Psychiatric History: Reports: Hx Anxiety, Hx Depression Denies: Hx Panic Disorder - Cancer History Cancer Type, Location and Year: MELANOMA - dx 03/2016; active Immunotherapy at [facility] 2018 Hx Chemotherapy: Yes - Surgical History Surgical History: Yes Surgery Procedure, Year, and Place: Rt THIGH - MOLE REMOVED - MELANOMA +, WIDE EXCISION WITH LYMPH NODE REMOVED FROM GROIN,left shoulder melanoma. R ear, R arm mole removal Infectious Disease History: No Infectious Disease History: Denies: Hx Hepatitis, Hx Human Immunodeficiency Virus (HIV), Traveled Outside the in Last 30 Days - Family History Known Family History: Positive: Hypertension - Father, Diabetes - Grandfather - Social History Lives: With Family Alcohol Use: None Hx Substance Use: No Substance Use Type: Reports: None Hx Tobacco Use: No Smoking Status (MU): Never Smoked Tobacco Review of Systems - ROS Summary Review of Systems Summary: Tamsulosin CAP* [Flomax CAP*] 0.4 mg PO DAILY #7 cap 10/04/19 [Rx] Negative: Fever, Other - Negative change in appetite Negative: Vomiting, Diarrhea, Nausea Positive: dysuria, frequency - Urinary, flank pain - Left, hematuria, other - Positive decreased urine output Positive: Myalgia - Back that radiates from the left flank All Other Systems Reviewed And Are Negative: Yes Physical Exam - Summary Physical Exam Summary: General: Well-developed, Well-nourished Female in moderate discomfort. No acute distress. HEENT: Normocephalic, Atraumatic. Eyes: Conjuctiva normal, PERRL. Oropharynx: Clear, mucous membranes moist, (-) exudates. Neck: Soft, FROM, (-) lymphadenopathy, (-) thyromegaly, (-) JVD. Cardiovascular: Normal sinus rhythm, (-) murmur. Lungs: Clear to auscultation bilaterally (-) wheezes, (-) rales, (-) rhonchi. Abdomen: Soft, non-distended, (-) organomegaly, normal bowel sounds. Left lower quadrant tenderness. Back: Left CVA tenderness Extremities: No edema. Skin: Warm, dry, (-) rash. Neuro: Alert and oriented x3, moves all extremities equally. No ataxia. No gait disturbance. No sensory deficit. Normal strength, normal sensation. Psychiatric: Mood normal, affect normal. Triage Information Reviewed: Yes Vital Signs On Initial Exam: Initial Vitals Temp Pulse Resp BP Pulse Ox 96 F 79 24 128/81 95 10/03/19 23:58 10/03/19 23:58 10/03/19 23:58 10/03/19 23:58 10/03/19 23:58 Vital Signs Reviewed: Yes Procedures - Sedation Patient Received Moderate/Deep Sedation with Procedure: No Diagnostics - Vital Signs Vital Signs Temp Pulse Resp BP Pulse Ox 10/03/19 23:58 96 F 79 24 128/81 95 - Laboratory Result Diagrams: 10/04/19 00:44 10/04/19 00:44 Lab Statement: Any lab studies that have been ordered have been reviewed, and results considered in the medical decision making process. - CT Abdomen/Pelvis CT CT Interpretation Completed By: Radiologist Summary of CT Findings: Abdomen/Pelvis CT IMPRESSION: There is a 2 mm calculus at the left ureterovesical junction with mild left obstructive uropathy. Reviewed by Dr. Curry. Re-Evaluation - Re-Evaluation First Eval Re-Evaluation Time: 00:57 Change: Unchanged Comment: At 00:57, patients pain improved with Toradol, but has now returned. I will order fentanyl. Second Eval Re-Evaluation Time: 03:58 Change: Improved Comment: I discussed all results and flank pain has resolved. Discussed all symptoms that warrant return to the ED. Abdominal Pain Fem Course/Dx - Course Course Of Treatment: 28-year-old female presents from home with left flank pain radiates to her left lower quadrant. Started about an hour prior to arrival. Describes it as severe. Patient is in obvious severe discomfort. Patient has not had any fevers or vomiting. She states she has had difficulty with urinating the last day or 2. States it feels like she has to go all the time but not much comes out. There is no burning or hematuria however. On physical exam she has mild left CVA tenderness mild left lower quadrant tenderness. Patient given IV fluids, Toradol and Zofran. She had some good relief with that and initially but that did not last long. She was then given fentanyl. Laboratories demonstrated some minor abnormalities only. CT abdomen and pelvis demonstrated a 2 mm stone at the UVJ. Patient given Flomax. Was discharged home with Percocet and Flomax. Follow up with PCP. Follow up sooner for any worsening symptoms. - Diagnoses Provider Diagnoses: Nephrolithiasis Discharge ED - Sign-Out/Discharge Documenting (check all that apply): Patient Departure - Discharge - Discharge Plan Condition: Stable Disposition: HOME Prescriptions: Tamsulosin CAP* [Flomax CAP*] 0.4 mg PO DAILY #7 cap Patient Education Materials: Kidney Stones (ED) Referrals: [facility] [Outside] Additional Instructions: Please follow up with your primary care physician within three days. Please return to ED for any new or worsening symptoms. - Billing Disposition and Condition Condition: STABLE Disposition: Home - Attestation Statements Document Initiated by Scribe: Yes Documenting Scribe: Alee Snider Provider For Whom Scribe is Documenting (Include Credential): Lulu Curry MD Scribe Attestation: Alee Oneill scribed for Lulu Curry MD on 10/04/19 at 0545. Scribe Documentation Reviewed: Yes Provider Attestation: The documentation as recorded by the Alee leon accurately reflects the service I personally performed and the decisions made by Lulu bowman MD Status of Scribe Document: Viewed
[2019-10-04 00:42] LABS: Urine Appearance Cloudy; Urine Bilirubin Negative (Negative); Urine Blood Negative (Negative); Urine Color Yellow; Urine Glucose Negative (Negative); Urine Ketones Trace (Negative); Urine Nitrite Negative (Negative); Urine Protein Negative (Negative); Urine Specific Gravity 1.021 (1.010-1.030); Urine Urobilinogen Negative (Negative)
[2019-10-04] MEDS ORDERED: fentaNYL* 50 MCG/ML 2 ML VIAL (100 MCG VIAL) IV SLOW PU ONE ×2 (00:57→01:55)
[2019-10-04 00:58] LABS: ABS Basophils 0.1 10^3/ul (0-0.2); ABS Eosinophils 0.2 10^3/ul (0-0.6); ABS Lymphocytes 2.3 10^3/ul (1.0-4.8); ABS Monocytes 0.7 10^3/ul (0-0.8); ABS Neutrophils 7.7 10^3/ul (1.5-7.7); Eosinophil % 1.7 %; Hematocrit 39 % (35-47); Hemoglobin 13.3 g/dL (12.0-16.0); Lymphocyte % 20.7 %; Mean Corpuscular HGB Conc 34 g/dL (31-36); Mean Corpuscular Hemoglobin 31 pg (27-31); Mean Corpuscular Volume 91 fL (80-97); Mean Platelet Volume 8.1 fL (7.4-10.4); Platelet Count 251 10^3/uL (150-450); Red Blood Count 4.26 10^6 /uL (3.70-4.87); Red Cell Distribution Width 14 % (10-15); White Blood Count 10.9 10^3/uL (3.5-10.8)
[2019-10-04 01:03] LABS: INR 1.02 (0.82-1.09)
[2019-10-04 01:14] LABS: ALT 13 U/L (7-52); AST 17 U/L (13-39); Albumin 4.2 g/dL (3.2-5.2); Albumin/Globulin Ratio 1.6 (1-3); Alkaline Phosphatase 64 U/L (34-104); Anion Gap 8 mmol/L (2-11); BUN/Creatinine Ratio 8.8 (8-20); Blood Urea Nitrogen 8 mg/dL (6-24); C Reactive Protein 1.18 mg/L (<8.01); CO2 Carbon Dioxide 20 mmol/L (22-32); Calcium 8.6 mg/dL (8.6-10.3); Chloride 109 mmol/L (101-111); EGFR African American 89.1 (>60); EGFR Non-African American 73.6 (>60); Globulin 2.6 g/dL (2-4); Glucose 126 mg/dL (70-100); Potassium 3.4 mmol/L (3.5-5.0); Sodium 137 mmol/L (135-145); Total Protein 6.8 g/dL (6.4-8.9)
[2019-10-04] MEDS ORDERED: Iohexol 300* (CONTRAST) 10 ML SDV IV ONE (01:17)
[2019-10-04 01:21] LABS: HCG Pregnancy < 0.60 mIU/mL
[2019-10-04] MEDS ORDERED: Tamsulosin CAP* 0.4 MG PO ONE (03:54)
[2019-10-04 04:49] VITALS: BP 104/74
== END 2019-10-04 04:48 | disposition home or self-care (01) ==
LOC: ED 23:57
DX: N20.0 Calculus of kidney (principal); F41.9 Anxiety disorder, unspecified; F32.9 Major depressive disorder, single episode, unspecified; Z85.820 Personal history of malignant melanoma of skin
CPT/HCPCS: 36415; 74177; 80053; 81003; 83605; 83690; 84702; 85025; 85610; 86140; 96361; 96374; 96375; 96376; 99284; J1885; J2405; J3010; Q9967